=== PATIENT | male | born 1975 ===

== ENCOUNTER 2024-12-06 10:27 | Inpatient (IN) | payer MEDICARE, SELFPAY ==
--- NOTE | 2024-12-06 10:59 | ED_ITS ---
HPI - General Adult General Chief complaint: Psychiatric Symptoms Stated complaint: SI PER EMS Time Seen by Provider: 12/06/24 10:28 Source: patient and EMS Mode of arrival: EMS Limitations: no limitations History of Present Illness ED Provider: WILLIAM Carcamo HPI narrative: This is a 49-year-old male history of opiate use disorder on maintenance methadone who has not taken his dose for a few days presents to the emergency department with suicidal and homicidal ideation. Patient tells me I want to strangle my brother and Robel . When I asked him why he tells me he let them borrow money further apartment and then they started ?treating me like shit ?. He was mad because they offered to let him use his phone but they gave it to him when it was on 2%. He reports he is very upset right now. Denies visual, auditory and tactile hallucinations. Denies alcohol and tobacco but admits to just using heroin. Denies any medical complaints at this time. She does report he was recently at [facility] and then discharged to [facility] where they discharged him a few days ago Related Data Allergies Allergy/AdvReac Type Severity Reaction Status Date / Time No Known Allergies Allergy Verified 12/06/24 11:24 Review of Systems 2 Review of Systems: Yes all other systems are reviewed and are negative PMFSH Past Medical History Attestation statement: The following information was validated with the patient. Source: old records reviewed and nursing notes reviewed Social History Social History Smoked in Last 30 Days: Yes Use of substances other than those prescribed or required for medical reasons: Yes Substance Use Type: Heroin Substance Use Frequency: Daily Last Used Substance: Just Prior to Admission Advance Directives: No Advance Directives Information Provided: No Do you have a plan to hurt others: No Plan Physical Exam ED Exam Exam: Appearance: Alert.? Oriented X3.? No acute distress.?+ ambulating with a walker Head: Normocephalic, atraumatic, no step-offs or deformities Eyes: Pupils equal, round and reactive to light.? ENT: Pharynx normal.? Neck: Normal inspection.? Neck supple.? CVS: Normal heart rate and rhythm.? Pulses normal.? Respiratory: No respiratory distress.? Breath sounds normal.? Abdomen: Soft and nontender.? Skin: Skin warm and dry.? Normal skin color.? Normal skin turgor.? Extremities: No lower extremity edema.? No calf ttp. 5/5 strength to bilateral upper and lower extremities Back: No midline tenderness, no C-spine tenderness, full range of motion, no CVA tenderness bilaterally Neuro: Oriented X 3.? No motor deficit.? No sensory deficit. CN 2-12 intact Vital Signs: Vital Signs - 24 hr 12/06/24 11:36 Temperature 98.5 F Pulse Rate 57 Respiratory Rate 16 Blood Pressure 115/57 L Pulse Oximetry 95 Oxygen Delivery Method Room Air BMI result Body Mass Index 40.1 vss Course Reevaluation(s) Reevaluation #1: CBC with no acute findings needing intervention. Chemistry unremarkable. Ethanol negative. Urine toxicology and UA pending. Time: 11:55 Reevaluation #2: At this time patient will be placed into observation to allow more time to be evaluated by behavioral health team. At time observation was started patient common cooperative no acute distress will continue to monitor Time: 11:56 Medical Decision Making Medical Decision Making MDM Narrative: 1100 49-year-old male presents with suicidal and homicidal ideation. Physical exam benign Hx and physical exam concerning for aggression, suicidal and homicidal ideation. Patient likely with anger issues. Unlikely metabolic derangements. Plan medical clearance evaluation by care team Differential Diagnosis Differential Diagnoses: The differential diagnosis associated with the presentation includes (Hx and physical exam concerning for aggression, suicidal and homicidal ideation. Patient likely with anger issues. Unlikely metabolic derangements. Plan medical clearance evaluation by care team) Admission/Observation Consideration of admission/observation: Escalation of care including admission/observation considered Consult Healthcare Provider Management of the patient was discussed with: Behavioral Health Provider Lab Data 12/06/24 11:27 12/06/24 11:27 Labs: Lab Results 12/06/24 Range/Units 11:27 WBC 6.4 (4.8-10.8) X10*3/uL RBC 3.78 L (4.60-5.80) X10*6/uL Hgb 11.0 L (14.0-18.0) g/dl Hct 31.8 L (42.0-52.0) % MCV 84.1 (80.0-98.0) fL MCH 29.1 (27.0-33.0) pg MCHC 34.6 (31.0-36.0) g/dl RDW 13.1 (11.0-16.0) % Plt Count 212 (160-400) X10*3/uL MPV 9.0 L (9.4-12.4) fL Immature Gran % (Auto) 0.3 (0.0-0.4) % Neut % (Auto) 72.0 (45-73) % Lymph % (Auto) 17.4 L (20-40) % Bowie % (Auto) 9.2 (2-11) % Eos % (Auto) 0.8 (0-4) % Baso % (Auto) 0.3 (0-2) % Lymph # (Auto) 1.1 L (1.2-4.9) X10*3/uL Bowie # (Auto) 0.6 (0.1-1.2) X10*3/uL Eos # (Auto) 0.1 (0.0-0.4) X10*3/uL Baso # (Auto) 0.0 (0.0-0.2) X10*3/uL Abs Immat Gran (auto) 0.02 (0.00-0.03) X10*3/uL Absolute Neuts (auto) 4.6 (2.0-8.3) x10*3/uL Absolute Nucleated RBC 0.000 (0.0-0.012) X10*3/uL Nucleated RBC % (auto) 0.0 (0.0-0.2) /100WBC Sodium 139 (135-145) mmol/L Potassium 4.1 (3.3-5.1) mmol/L Chloride 106 (96-108) mmol/L Carbon Dioxide 26 (22-29) mmol/L Anion Gap 11 L (12-20) BUN 12 (9-16) mg/dL Creatinine 0.80 (0.5-1.4) mg/dL Estim Creat Clear Calc 137.5 Estimated GFR > 60 Random Glucose 99 (60-115) mg/dL Calcium 8.9 (8.4-10.2) mg/dL Total Bilirubin 0.3 (0.0-1.0) mg/dL AST 63 H (5-37) U/L ALT 61 H (0-40) U/L Alkaline Phosphatase 70 (39-117) U/L Total Protein 6.8 (6.5-8.0) g/dL Albumin 4.1 (3.5-5.0) g/dL Ethyl Alcohol < 10 mg/dL Chronic Conditions Patient?s care impacted by: Other (see hpi ) Critical Care Time Critical Care Time Critical Care Time: No Discharge Plan Discharge Clinical Impression: Acute psychosis, Suicidal ideation, Depression Interventions: [place]-Suicide Risk Severity Scale Last Done: 12/06/24 11:25 Print Language: Tanzanian
[2024-12-06 11:07] VITALS: BP 150/72; PULSE 72; O2SAT 94; BMI 40.1
[2024-12-06 11:33] LABS: MANUAL DIFF FLAG NO
[2024-12-06 11:36] VITALS: BP 115/57; PULSE 57; RESP 16; TEMP 36.9; O2SAT 95
[2024-12-06 11:36] LABS: Hematocrit 31.8 % (42.0-52.0); Hemoglobin 11.0 g/dl (14.0-18.0); Imm Gran Abs Auto 0.02 X10*3/uL (0.00-0.03); Imm Gran Pct Auto 0.3 % (0.0-0.4); Lymphocytes Absolute Auto 1.1 X10*3/uL (1.2-4.9); Mean Corpuscular HGB Conc 34.6 g/dl (31.0-36.0); Mean Corpuscular Hemoglobin 29.1 pg (27.0-33.0); Mean Corpuscular Volume 84.1 fL (80.0-98.0); NRBC Abs Auto 0.000 X10*3/uL (0.0-0.012); NRBC Pct Auto 0.0 /100WBC (0.0-0.2); Platelet Count 212 X10*3/uL (160-400); Red Blood Count 3.78 X10*6/uL (4.60-5.80); White Blood Count 6.4 X10*3/uL (4.8-10.8)
--- OUTSIDE RECORDS SUMMARY | 2024-12-06 11:40 | XMS_ITS ---
Author Name [facility] Organization Unknown Care Team Organization Name Specialty Phone Email Start Date End Da te [facility] Termed, PROVIDER Primary Care 10/10/2024 [facility] Termed, PROVIDER Primary Care 06/19/202409/30
--- OUTSIDE RECORDS SUMMARY | 2024-12-06 11:40 | XMS_ITS | Clinical Summary ---
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 V28) from Last 3 Months Social History Tobacco Use Types Packs/Day Years Used Date Smoking Tobacco: Never Assessed Sex and Gender Information Value Date Recorded Sex Assigned at Not on file Legal Sex Male 8:24 PM EST Gender Identity Not on file Sexual Orientation Not on file Plan of Treatment Health Maintenance Due Date Last Done Comments DTaP,Tdap,and Td Vaccines (1 - Tdap) 01/06/1995 Hepatitis A Vaccines (1 of 2 - Risk 2-dose series) 01/06/1995 Hepatitis B Vaccines (1 of 3 - 19+ 3-dose series) 01/06/1995 Colorectal Cancer Screening: Colonoscopy 04/27/2023 Medicare Annual Wellness Visit 04/27/2023 Social Influencers of Health Screening 04/27/2023 Depression Screening 04/02/2024 COVID-19 Vaccine (1 - 2023-2 5 season) 2024 Influenza Vaccine (#1) 2024 Cholesterol Screening (Lipid Panel) 11/06/2029 11/06/2024 HIV Screening Completed 08/29/2024 Hepatitis C Screening Completed 08/29/2024 HIB Vaccines Aged Out No longer eligi ble based on patient's age to complete this topic HPV Vaccines Aged Out No longer eligi ble based on patient's age to complete this topic IPV Vaccines Aged Out No longer eligi ble based on patient's age to complete this topic MMR Vaccines Aged Out No longer eligi ble based on patient's age to complete this topic Meningococcal ACWY Vaccine Aged Out N o longer eligible based on patient's age to complete this topic Meningococcal B Vaccine Aged Out No l onger eligible based on patient's age to complete this topic Pneumococcal Vaccine: Pediat rics (0 to 5 Years) and At-Risk Patients (6 to 49 Years) Aged Out No longer eligi ble based on patient's age to complete this topic RSV Immunization Patients Un corinne 20 months Aged Out No longer eligible b ased on patient's age to complete this topic Varicella Vaccines Aged Out No longer eligible based on patient's age to complete this topic Procedures Procedure Name Priority Date/Time Associated Diagnosis Comments LIPID PANEL WITH REFLEX TO DIRECT LDL Routine 11/06/2024 7:00 AM EDT Other moth exterminator (current) drug therapy COMPREHENSIVE METABOLIC PANEL Routine 11/06/2024 7:00 AM EDT Other moth exterminator (current) drug therapy HEMOGLOBIN A1C Routine 11/06/2024 7:00 AM EDT Other moth exterminator (current) drug therapy CHLAMYDIA TRACHOMATIS AND NEISSERIA GONORRHOEAE PCR Routine 10/20/2024 7:05 AM EDT Opioid dependence, uncomplicated (CMS/HCC V24, CMS/HCC V28) HEPATITIS C ANTIBODY Routine 08/29/2024 7:00 AM EDT Opioid dependence, uncomplicated (CMS/HCC V24, CMS/HCC V28) HIV 1, 2 ANTIBODY, P24 ANTIGEN WITH REFLEX TO DIFFERENTIATION Routine 08/29/2024 7:00 AM EDT Opioid dependence, uncomplicated (CMS/HCC V24, CMS/HCC V28) from Last 3 Months or Most Recently Relevant to Health Maintenance Results * (ABNORMAL) Lipid panel with reflex to direct LDL (11/06/2024 7:00 AM EDT) Cholesterol 297(H) 0 - 200 mg/dL LAB CHEMISTRY METHOD 11/06/2024 11:09 AM EDT [facility] Triglycerides 449(H) 0 - 150 mg/dL LAB CHEMISTRY METHOD 11/06/2024 11:09 AM EDT [facility] HDL 39(L) >=40 mg/dL LAB CHEMISTRY METHOD 11/06/2024 11:09 AM T [facility] LDL Calculated 168(H) 0 - 100 mg/dL LAB CHEMISTRY METHOD 11/06/2024 11:09 AM T [facility] Comment: Unable to calculate when triglycerides >400 mg/dL. Estimated LDL Calculated using equation: Total cholesterol - HDL cholesterol - (Triglycerides/5) VLDL Cholesterol Sadi 89.8 mg/dL LAB CHEMISTRY METHOD 11/06/2024 11:09 AM EDT [facility] Comment:Unable to calculate when triglycerides >400 mg/dL. Non HDL Chol. (LDL+VLDL) 258(H) <145 mg/dL LAB CHEMISTRY METHOD 11/06/2024 11:09 AM T [facility] Comment:Unable to calculate when triglycerides >400 mg/dL. Chol/HDL Ratio 7.6(H) 0.0 - 4.4 LAB CHEMISTRY METHOD 11/06/2024 11:09 AM T [facility] Blood Venous blood specimen / Unknown Venipuncture / Unknown 11/06/2024 7:00 AM EDT 11/06/2024 10:06 AM EDT us Remy Jerez NP LAB BLOOD ORDERABLES Final Resu lt [facility] [address] [place] [address], [place] [phone] * Hemoglobin A1c (11/06/2024 7:00 AM EDT) [facility] Hemoglobin A1C 4.9 <6.5 % LAB CHEMISTRY METHOD 11/06/2024 11:26 AM [facility] Mean Bld Glu Estim. 94 mg/dL LAB CHEMISTRY METHOD 11/06/2024 11:26 AM T [facility] Blood Venous blood specimen / Unknown Venipuncture / Unknown 11/06/2024 7:00 AM EDT 11/06/2024 10:06 AM EDT Remy Jerez NP LAB BLOOD ORDERABLES Final Resu lt [facility] [address] [place] [address], * (ABNORMAL) Comprehensive metabolic panel (11/06/2024 7:00 AM EDT) [facility] Sodium 140 133 - 145 mmol/L LAB CHEMISTRY METHOD 11/06/2024 11:08 AM [facility] Potassium 4.0 3.5 - 5.5 mmol/L LAB CHEMISTRY METHOD 11/06/2024 11:08 AM [facility] Chloride 109 96 - 110 mmol/L LAB CHEMISTRY METHOD 11/06/2024 11:08 AM [facility] CO2 25 21 - 32 mmol/L LAB CHEMISTRY METHOD 11/06/2024 11:08 AM [facility] Anion Gap 6 3 - 11 LAB CHEMISTRY METHOD 11/06/2024 11:08 AM [facility] Glucose 105(H) 70 - 100 mg/dL LAB CHEMISTRY METHOD 11/06/2024 11:08 AM [facility] BUN 17 5 - 25 mg/dL LAB CHEMISTRY METHOD 11/06/2024 11:08 AM [facility] Creatinine 0.80 0.70 - 1.30 mg/dL LAB CHEMISTRY METHOD 11/06/2024 11:08 AM [facility] eGFR 109 >=60 mL/min/1. 73m2 LAB CHEMISTRY METHOD 11/06/2024 11:08 AM [facility] Comment:Calculation based on the Chronic Kidney Disease Epidemiology Collaboration (CKD-EPI) equation refit without adjustment for race. BUN/Creatinine Ratio 21.3 LAB CHEMISTRY METHOD 11/06/2024 11:08 AM [facility] Calcium 9.2 8.5 - 10.5 mg/dL LAB CHEMISTRY METHOD 11/06/2024 11:08 AM [facility] AST (SGOT) 18 10 - 42 unit/L LAB CHEMISTRY METHOD 11/06/2024 11:08 AM [facility] ALT (SGPT) 33 10 - 60 unit/L LAB CHEMISTRY METHOD 11/06/2024 11:08 AM [facility] Alkaline Phosphatase 92 42 - 121 unit/L LAB CHEMISTRY METHOD 11/06/2024 11:08 AM [facility] Total Protein 7.1 6.0 - 8.0 g/dL LAB CHEMISTRY METHOD 11/06/2024 11:08 AM [facility] Albumin 3.6 3.2 - 5.0 g/dL LAB CHEMISTRY METHOD 11/06/2024 11:08 AM [facility] Total Bilirubin 0.3 0.0 - 1.4 mg/dL LAB CHEMISTRY METHOD 11/06/2024 11:08 AM [facility] Blood Venous blood specimen / Unknown Venipuncture / Unknown 11/06/2024 7:00 AM EDT 11/06/2024 10:06 AM EDT us Remy Jerez NP LAB BLOOD ORDERABLES Final Resu lt [facility] [address] [place] [address], [place] [phone] * Chlamydia trachomatis and Neisseria gonorrhoeae molecular study (10/20/2024 7:05 AM EDT) [facility] Neisseria gonorrhoeae PCR Negative Negative LAB MOLECULAR DIAGNOSTICS METHOD 10/20/2024 3:32 PM EDT [facility] Chlamydia trachomatis PCR Negative Negative LAB MOLECULAR DIAGNOSTICS METHOD 10/20/2024 3:32 PM EDT [facility] Urine 10/20/2024 7:05 AM EDT 10/20/2024 12:56 PM EDT Simi Barkley MD LAB MICROBIOLOGY - GENE RAL ORDERABLES Final Result Performing Organization Address City/[facility]/ZIP Co de Phone Number [facility] [address] [place] [address], [place] [phone] * Hepatitis C antibody (08/29/2024 7:00 AM EDT) [facility] Hepatitis C Antibody Negative Negative LAB CHEMISTRY METHOD 08/29/2024 7:20 PM EDT [facility] Blood Venous blood specimen / Unknown 08/29/2024 7:00 AM EDT 08/29/2024 2:55 PM EDT Simi Barkley MD LAB BLOOD ORDERABLES Fi nal Result [facility] [address] [place] [address], [place] [phone] * HIV 1,2 antibody, p24 antigen with reflex to differentiation (08/29/2024 7:00 AM EDT) [facility] HIV Combo AB/AG Negative Negative LAB CHEMISTRY METHOD 08/29/2024 7:25 PM EDT [facility] Blood Venous blood specimen / Unknown 08/29/2024 7:00 AM EDT 08/29/2024 2:55 PM EDT Narrative [facility]) [facility] - 08/29/2024 7:25 PM EDT This assay is a 4th generation assay allowing for earlier detection of HIV infection by detecting the presence of the HIV-1 p24 antigen as well as the traditional antibodies to HIV type 1 (including group O) and type 2. Use of a 4th generation assay is the current CDC recommendation for HIV screening. us Simi Barkley MD LAB BLOOD ORDERABLES Fi nal Result [facility] ([facility]) [facility] [address] [place] [address], from Last 3 Months or Most Recently Relevant to Health Maintenance Insurance MEDICAID - [place] AET[place] MEDICARE ADVANTAGE Care Teams Passenger Brakeman Relationship Specialty Start Date End Date Remy Jerez NP [address] [place] [id number] PCP - General 11/06/24
--- OUTSIDE RECORDS SUMMARY | 2024-12-06 11:40 | XMS_ITS | Encounter Summary ---
Author Organization [employer] [facility] Address [address] [place] [address] Care Team Providers Care Heddler Name Role Phone Remy Jerez NP Primary Care Provider [phone] Encounter Details Date Type Department Care Team (Late st Contact Info) Description 10/20/2024 Lab Requisition [facility] Lab [address] [facility] [place] [address] Simi Barkley MD [address] [place] [address] Opioid dependence, uncomplicated ([facility] V24, [facility] V28) Social History Tobacco Use Types Packs/Day Years Used Date Smoking Tobacco: Never Assessed Sex and Gender Information Value Date Recorded Sex Assigned at Not on file Legal Sex Male 8:24 PM EST Gender Identity Not on file Sexual Orientation Not on file documented as of this encounter Plan of Treatment Not on file documented as of this encounter Procedures Procedure Name Priority Date/Time Associated Diagnosis Comments CHLAMYDIA TRACHOMATIS AND NEISSERIA GONORRHOEAE PCR Routine 10/20/2024 7:05 AM EDT Opioid dependence, uncomplicated ([facility] V24, [facility] V28) documented in this encounter Results * Chlamydia trachomatis and Neisseria gonorrhoeae molecular study (10/20/2024 7:05 AM EDT) Neisseria gonorrhoeae PCR Negative Negative LAB MOLECULAR DIAGNOSTICS METHOD 10/20/2024 3:32 PM EDT [facility] Chlamydia trachomatis PCR Negative Negative LAB MOLECULAR DIAGNOSTICS METHOD 10/20/2024 3:32 PM EDT [facility] Urine 10/20/2024 7:05 AM EDT 10/20/2024 12:56 PM EDT us Simi Barkley MD LAB MICROBIOLOGY - GENE RAL ORDERABLES Final Result [facility] ([facility]) [facility] [address] [place] [address], documented in this encounter Visit Diagnoses Diagnosis Opioid dependence, uncomplicated (CMS/HCC V24, CMS/HCC V28) documented in this encounter Care Teams Heddler Relationship Specialty Start Date End Date Remy Jerez NP [facility] [place] [address] PCP - General 11/06/24 documented as of this encounter
--- OUTSIDE RECORDS SUMMARY | 2024-12-06 11:40 | XMS_ITS | Encounter Summary ---
Author Organization [employer] Address [address] [place] [address] Care Team Providers Care Roof Tiler Name Role Phone Remy Jerez NP Primary Care Provider Encounter Details Date Type Department Care Team (Late st Contact Info) Description 08/29/2024 Lab Requisition [facility] - Main Lab [address] [facility] [place] [address] Simi Barkley MD [address] [place] [address] Opioid dependence, uncomplicated (CMS/HCC V24, CMS/HCC V28) Social History Tobacco Use Types Packs/Day [...] Procedure Name Priority Date/Time Associated Diagnosis Comments HEPATITIS C ANTIBODY Routine 08/29/2024 7:00 AM EDT Opioid dependence, uncomplicated (CMS/HCC V24, CMS/HCC V28) HIV 1, 2 ANTIBODY, P24 ANTIGEN WITH REFLEX TO DIFFERENTIATION Routine 08/29/2024 7:00 AM EDT Opioid dependence, uncomplicated (CMS/HCC V24, CMS/HCC V28) HEPATITIS B SURFACE ANTIGEN WITH CONFIRMATION Routine 08/29/2024 7:00 AM EDT Opioid dependence, uncomplicated (CMS/HCC V24, CMS/HCC V28) TREPONEMA PALLIDUM ANTIBODY WITH REFLEX TO RPR AND PARTICLE AGGLUTINATION Routine 08/29/2024 7:00 AM EDT Opioid dependence, uncomplicated (CMS/HCC V24, CMS/HCC V28) WHITE - K2EDTA Routine 08/29/2024 7:00 AM EDT Opioid dependence, uncomplicated (CMS/HCC V24, CMS/HCC V28) HEPATITIS A ANTIBODY TOTAL WITH REFLEX IGM Routine 08/29/2024 7:00 AM EDT Opioid dependence, uncomplicated (CMS/HCC V24, CMS/HCC V28) LAVENDER - EDTA Routine 08/29/2024 7:00 AM EDT Opioid dependence, uncomplicated (CMS/HCC V24, CMS/HCC V28) RED - PLAIN Routine 08/29/2024 7:00 AM EDT Opioid dependence, uncomplicated (CMS/HCC V24, CMS/HCC V28) HEPATITIS B CORE ANTIBODY, TOTAL Routine 08/29/2024 7:00 AM EDT Opioid dependence, uncomplicated (CMS/HCC V24, CMS/HCC V28) HEPATITIS B SURFACE ANTIBODY Routine 08/29/2024 7:00 AM EDT Opioid dependence, uncomplicated (CMS/HCC V24, CMS/HCC V28) COMPREHENSIVE METABOLIC PANEL Routine 08/29/2024 7:00 AM EDT Opioid dependence, uncomplicated (CMS/HCC V24, CMS/HCC V28) documented in this encounter Results * White - K2EDTA (08/29/2024 7:00 AM EDT) Extra Tube Hold for add-ons. 08/29/2024 4:01 PM EDT [facility] ([facility]) [facility] Comment:Auto resulted. Blood Venous blood specimen / Unknown 08/29/2024 7:00 AM EDT 08/29/2024 2:55 PM EDT us Simi Barkley MD LAB BLOOD ORDERABLES Fi nal Result [facility] [address] [place] [address], [place] [phone] * Red tube (08/29/2024 7:00 AM EDT) Extra Tube Hold for add-ons. 08/29/2024 4:01 PM EDT [facility] Comment:Auto resulted. Blood Venous blood specimen / Unknown 08/29/2024 7:00 AM EDT 08/29/2024 2:55 PM EDT Simi Barkley MD LAB BLOOD ORDERABLES Fi nal Result Performing Organization Address [facility]/ZIP Co de Phone Number [facility] [address] [place] [address], [place] [phone] * Lavender tube (08/29/2024 7:00 AM EDT) Extra Tube Hold for add-ons. 08/29/2024 4:01 PM EDT [facility] Comment:Auto resulted. Blood Venous blood specimen / Unknown 08/29/2024 7:00 AM EDT 08/29/2024 2:55 PM EDT Simi Barkley MD LAB BLOOD ORDERABLES Fi nal Result Performing Organization Address City/[facility]/ZIP Co de Phone Number [facility] [address] [place] [address], [place] [phone] * Hepatitis C antibody (08/29/2024 7:00 AM EDT) Hepatitis C Antibody Negative Negative LAB CHEMISTRY METHOD 08/29/2024 7:20 PM EDT [facility] Blood Venous blood specimen / Unknown 08/29/2024 7:00 AM EDT 08/29/2024 2:55 PM EDT Simi Barkley MD LAB BLOOD ORDERABLES Fi nal Result Performing Organization Address [facility]/ZIP Co de Phone Number [facility] [address] [place] [address], [place] [phone] * Hepatitis A antibody total with reflex IgM (08/29/2024 7:00 AM EDT) Hep A Total Ab Negative Negative LAB CHEMISTRY METHOD 08/29/2024 7:20 PM EDT [facility] Blood Venous blood specimen / Unknown 08/29/2024 7:00 AM EDT 08/29/2024 2:[address] [facility] - 08/29/2024 7:20 PM EDT Over the counter supplements containing high doses of biotin may interfere with this assay. If interference is suspected, patients shoud be retested after refraining from biotin supplements for 72 hours. Simi Barkley MD LAB BLOOD ORDERABLES Fi nal Result Performing Organization Address [facility] Co de Phone Number [facility] [address] [place] [address], [place] [phone] * HIV 1,2 antibody, p24 antigen with reflex to differentiation (08/29/2024 7:00 AM EDT) HIV Combo AB/AG Negative Negative LAB CHEMISTRY METHOD 08/29/2024 7:25 PM EDT [facility] Blood Venous blood specimen / Unknown 08/29/2024 7:00 AM EDT 08/29/2024 2:[address] [facility] - 08/29/2024 7:25 PM EDT This assay is a 4th generation assay allowing for earlier detection of HIV infection by detecting the presence of the HIV-1 p24 antigen as well as the traditional antibodies to HIV type 1 (including group O) and type 2. Use of a 4th generation assay is the current CDC recommendation for HIV screening. Simi Barkley MD LAB BLOOD ORDERABLES Fi nal Result Performing Organization Address City/[facility]/ZIP Co de Phone Number [facility] [address] [place] [address], [place] [phone] * Hepatitis B core antibody, total (08/29/2024 7:00 AM EDT) Hep B Core Total Ab Negative Negative LAB CHEMISTRY METHOD 08/29/2024 7:25 PM EDT [facility] Blood Venous blood specimen / Unknown 08/29/2024 7:00 AM EDT 08/29/2024 2:55 PM EDT Simi Barkley MD LAB BLOOD ORDERABLES Fi nal Result Performing Organization Address [facility] de Phone Number [facility] [address] [place] [address], [place] [phone] * Hepatitis B surface antibody (08/29/2024 7:00 AM EDT) Hepatitis B Surface Ab Negative Negative LAB CHEMISTRY METHOD 08/29/2024 6:46 PM EDT [facility] Hepatitis B Surface Ab Quantitative <3.1 mIU/mL LAB CHEMISTRY METHOD 08/29/2024 6:46 PM EDT [facility] Blood Venous blood specimen / Unknown 08/29/2024 7:00 AM EDT 08/29/2024 2:55 PM EDT Narrative [facility] - 08/29/2024 6:46 PM EDT >=10 mIU/mL is considered to be consistent with immunity. Simi Barkley MD LAB BLOOD ORDERABLES Fi nal Result Performing Organization Address City/[facility]/ZIP Co de Phone Number [facility] [address] [place] [address], [place] [phone] * Hepatitis B surface antigen with reflex to confirmation (08/29/2024 7:00 AM EDT) [facility] Hepatitis B Surface Ag Negative Negative LAB CHEMISTRY METHOD 08/29/2024 6:57 PM EDT [facility] Blood Venous blood specimen / Unknown 08/29/2024 7:00 AM EDT 08/29/2024 2:55 PM EDT Narrative [facility] - 08/29/2024 6:57 PM EDT Over the counter supplements containing high doses of biotin may interfere with this assay. If interference is suspected, patients shoud be retested after refraining from biotin supplements for 72 hours. Simi Barkley MD LAB BLOOD ORDERABLES Fi nal Result Performing Organization Address [facility]/ZIP Co de Phone Number [facility] [address] [place] [address], [place] [phone] * Treponema pallidum antibody with reflex to RPR and particle agglutination (08/29/2024 7:00 AM EDT) [facility] T. Pallidum Antibodies Negative Negative LAB CHEMISTRY METHOD 08/29/2024 6:56 PM EDT [facility] Blood Venous blood specimen / Unknown 08/29/2024 7:00 AM EDT 08/29/2024 2:55 PM EDT Simi Barkley MD LAB BLOOD ORDERABLES Fi nal Result Performing Organization Address City/[facility]/ZIP Co de Phone Number [facility] [address] [place] [address], [place] [phone] * Comprehensive metabolic panel (08/29/2024 7:00 AM EDT) [facility] Sodium 140 133 - 145 mmol/L LAB CHEMISTRY METHOD 08/29/2024 3:58 PM [facility] Potassium 4.2 3.5 - 5.5 mmol/L LAB CHEMISTRY METHOD 08/29/2024 3:58 PM [facility] Chloride 106 96 - 110 mmol/L LAB CHEMISTRY METHOD 08/29/2024 3:58 PM [facility] CO2 24 21 - 32 mmol/L LAB CHEMISTRY METHOD 08/29/2024 3:58 PM [facility] Anion Gap 10 3 - 11 LAB CHEMISTRY METHOD 08/29/2024 3:58 PM [facility] Glucose 98 70 - 100 mg/dL LAB CHEMISTRY METHOD 08/29/2024 3:58 PM [facility] BUN 18 5 - 25 mg/dL LAB CHEMISTRY METHOD 08/29/2024 3:58 PM [facility] Creatinine 0.86 0.70 - 1.30 mg/dL LAB CHEMISTRY METHOD 08/29/2024 3:58 PM [facility] eGFR 107 >=60 mL/min/1. 73m2 LAB CHEMISTRY METHOD 08/29/2024 3:58 PM [facility] Comment:Calculation based on the Chronic Kidney Disease Epidemiology Collaboration (CKD-EPI) equation refit without adjustment for race. BUN/Creatinine Ratio 20.9 LAB CHEMISTRY METHOD 08/29/2024 3:58 PM [facility] Calcium 8.6 8.5 - 10.5 mg/dL LAB CHEMISTRY METHOD 08/29/2024 3:58 PM [facility] AST (SGOT) 27 10 - 42 unit/L LAB CHEMISTRY METHOD 08/29/2024 3:58 PM [facility] ALT (SGPT) 26 10 - 60 unit/L LAB CHEMISTRY METHOD 08/29/2024 3:58 PM [facility] Alkaline Phosphatase 88 42 - 121 unit/L LAB CHEMISTRY METHOD 08/29/2024 3:58 PM [facility] Total Protein 7.8 6.0 - 8.0 g/dL LAB CHEMISTRY METHOD 08/29/2024 3:58 PM EDT [facility] Albumin 3.9 3.2 - 5.0 g/dL LAB CHEMISTRY METHOD 08/29/2024 3:58 PM EDT [facility] Total Bilirubin 0.3 0.0 - 1.4 mg/dL LAB CHEMISTRY METHOD 08/29/2024 3:58 PM EDT [facility] Blood Venous blood specimen / Unknown 08/29/2024 7:00 AM EDT 08/29/2024 2:55 PM EDT us Simi Barkley MD LAB BLOOD ORDERABLES Fi nal Result [facility] [address] [place] [address], documented in this encounter Visit Diagnoses Diagnosis Opioid dependence, uncomplicated (CMS/HCC V24, CMS/HCC V28) documented in this encounter Care Teams Roof Tiler Relationship Specialty Start Date End Date Remy Jerez NP [address] [place] [address] PCP - General 11/06/24 documented as of this encounter
--- OUTSIDE RECORDS SUMMARY | 2024-12-06 11:40 | XMS_ITS | Encounter Summary ---
Author Organization [employer] Address [address] [place] [address] Care Team Providers Care Hotel Services Supervisor Name Role Phone Remy Jerez NP Primary Care Provider [phone] Encounter Details Date Type Department Care Team (Late st Contact Info) Description 11/06/2024 Lab Requisition [facility] - Main Lab [address] [place] [address] Remy Jerez NP [address] [place] [address] Other longterm (current) drug therapy Social History Tobacco Use Types Packs/Day Years [...] LDL Routine 11/06/2024 7:00 AM EDT Other longterm (current) drug therapy HEMOGLOBIN A1C Routine 11/06/2024 7:00 AM EDT Other data conversion operator (current) drug therapy COMPREHENSIVE METABOLIC PANEL Routine 11/06/2024 7:00 AM EDT Other data conversion operator (current) drug therapy documented in this encounter Results * (ABNORMAL) Lipid panel with reflex to direct LDL (11/06/2024 7:00 AM EDT) Cholesterol 297(H) 0 - 200 mg/dL LAB CHEMISTRY METHOD 11/06/2024 11:09 AM EDT [facility] Triglycerides 449(H) 0 - 150 mg/dL LAB CHEMISTRY METHOD 11/06/2024 11:09 AM EDT [facility] HDL 39(L) >=40 mg/dL LAB CHEMISTRY METHOD 11/06/2024 11:09 AM [facility] LDL Calculated 168(H) 0 - 100 mg/dL LAB CHEMISTRY METHOD 11/06/2024 11:09 AM T [facility] Comment: Unable to calculate when triglycerides >400 mg/dL. Estimated LDL Calculated using equation: Total cholesterol - HDL cholesterol - (Triglycerides/5) VLDL Cholesterol Sadi 89.8 mg/dL LAB CHEMISTRY METHOD 11/06/2024 11:09 AM EDT [facility] Comment:Unable to calculate when triglycerides >400 mg/dL. Non HDL Chol. (LDL+VLDL) 258(H) <145 mg/dL LAB CHEMISTRY METHOD 11/06/2024 11:09 AM T [facility] Comment:Unable to calculate when triglycerides >400 mg/dL. Chol/HDL Ratio 7.6(H) 0.0 - 4.4 LAB CHEMISTRY METHOD 11/06/2024 11:09 AM [facility] Blood Venous blood specimen / Unknown Venipuncture / Unknown 11/06/2024 7:00 AM EDT 11/06/2024 10:06 AM EDT Remy Jerez POKE IN LAB BLOOD ORDERABLES Final Resu lt [facility] [address] [place] [address], * (ABNORMAL) Comprehensive metabolic panel (11/06/2024 7:00 AM EDT) Sodium 140 133 - 145 mmol/L LAB CHEMISTRY METHOD 11/06/2024 11:08 AM EDT [facility] Potassium 4.0 3.5 - 5.5 mmol/L LAB CHEMISTRY METHOD 11/06/2024 11:08 AM [facility] Chloride 109 96 - 110 mmol/L LAB CHEMISTRY METHOD 11/06/2024 11:08 AM [facility] CO2 25 21 - 32 mmol/L LAB CHEMISTRY METHOD 11/06/2024 11:08 AM [facility] Anion Gap 6 3 - 11 LAB CHEMISTRY METHOD 11/06/2024 11:08 AM [facility] Glucose 105(H) 70 - 100 mg/dL LAB CHEMISTRY METHOD 11/06/2024 11:08 AM [facility] BUN 17 5 - 25 mg/dL LAB CHEMISTRY METHOD 11/06/2024 11:08 AM [facility] Creatinine 0.80 0.70 - 1.30 mg/dL LAB CHEMISTRY METHOD 11/06/2024 11:08 AM [facility] eGFR 109 >=60 mL/min/1. 73m2 LAB CHEMISTRY METHOD 11/06/2024 11:08 AM [facility] Comment:Calculation based on the Chronic Kidney Disease Epidemiology Collaboration (CKD-EPI) equation refit without adjustment for race. BUN/Creatinine Ratio 21.3 LAB CHEMISTRY METHOD 11/06/2024 11:08 AM [facility] Calcium 9.2 8.5 - 10.5 mg/dL LAB CHEMISTRY METHOD 11/06/2024 11:08 AM [facility] AST (SGOT) 18 10 - 42 unit/L LAB CHEMISTRY METHOD 11/06/2024 11:08 AM [facility] ALT (SGPT) 33 10 - 60 unit/L LAB CHEMISTRY METHOD 11/06/2024 11:08 AM [facility] Alkaline Phosphatase 92 42 - 121 unit/L LAB CHEMISTRY METHOD 11/06/2024 11:08 AM [facility] Total Protein 7.1 6.0 - 8.0 g/dL LAB CHEMISTRY METHOD 11/06/2024 11:08 AM EDT [facility] Albumin 3.6 3.2 - 5.0 g/dL LAB CHEMISTRY METHOD 11/06/2024 11:08 AM EDT [facility] Total Bilirubin 0.3 0.0 - 1.4 mg/dL LAB CHEMISTRY METHOD 11/06/2024 11:08 AM EDT [facility] Blood Venous blood specimen / Unknown Venipuncture / Unknown 11/06/2024 7:00 AM EDT 11/06/2024 10:06 AM EDT Remy Jerez NP LAB BLOOD ORDERABLES Final Resu lt Performing Organization Address City/[facility]/ZIP Co de Phone Number [facility] [address] [place] [address], [place] [phone] * Hemoglobin A1c (11/06/2024 7:00 AM EDT) Hemoglobin A1C 4.9 <6.5 % LAB CHEMISTRY METHOD 11/06/2024 11:26 AM EDT [facility] Mean Bld Glu Estim. 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
--- OUTSIDE RECORDS SUMMARY | 2024-12-06 11:40 | XMS_ITS | Encounter Summary ---
Author Organization [facility] Address [address] [place] [address] Care Team Providers Care Campus Receptionist Name Role Phone Remy Jerez NP Primary Care Provider [phone] Encounter Details Date Type Department Care Team (Late st Contact Info) Description 11/06/2024 Lab Requisition [facility] - Main Lab [address] [place] [address] Remy Jerez NP [facility] [place] [address] Social History Tobacco Use Types Packs/Day Years Used Date Smoking Tobacco: Never Assessed Sex and Gender Information Value Date Recorded Sex Assigned at Not on file Legal Sex Male 8:24 PM EST Gender Identity Not on file Sexual Orientation Not on file documented as of this encounter Plan of Treatment Not on file documented as of this encounter Visit Diagnoses Not on filedocumented in this encounter Care Teams Campus Receptionist Relationship Specialty Start Date End Date Remy Jerez NP [facility] [place] [address] PCP - General 11/06/24 documented as of this encounter
[2024-12-06 11:53] LABS: Alanine Aminotransferase 61 U/L (0-40); Albumin Level 4.1 g/dL (3.5-5.0); Alkaline Phosphatase 70 U/L (39-117); Anion Gap 11 (12-20); Aspartate Amino Transferase 63 U/L (5-37); Blood Urea Nitrogen 12 mg/dL (9-16); Calcium 8.9 mg/dL (8.4-10.2); Carbon Dioxide 26 mmol/L (22-29); Chloride 106 mmol/L (96-108); Creatinine Clr Calc Pharmacy 137.5; Estimated Glomerular Filt Rate > 60; Potassium 4.1 mmol/L (3.3-5.1); Sodium 139 mmol/L (135-145); Total Protein 6.8 g/dL (6.5-8.0)
[2024-12-06 12:41] LABS: Appearance Urine Clear; Glucose Urine UA Negative (Negative); PH >= 9.0 (5.0-9.0); Specific Gravity - Urine 1.010 (1.005-1.025)
[2024-12-06 12:50] LABS: Cannabinoid Screen Urine Not Detected (Not Detect)
--- NOTE | 2024-12-06 13:36 | HE.PHANOTE ---
RE Methadone Pt recieves 140mg from [facility]. Last dose given was on 12/03/24 @0830
[2024-12-06 14:00] VITALS: BP 119/60; PULSE 59; RESP 16; O2SAT 97
[2024-12-06] MEDS: methADONE HCl 20 MG/2 ML ORAL.CONC 140 MG PO (15:25)
--- NOTE | 2024-12-06 16:50 | PC.NURSE ---
Pt has remained calm and cooperative, he is able to make his needs known. He has reported anxiety and nicotine cravings. Orders obtained for PRN's with good effect. Pt currently denies SI at this time but gets emotional when asked and talks about his . He sits in the common area and spends time watching TV and coloring. He continues to ambulate with is walker, safety is maintained.
[2024-12-07 06:22] VITALS: BP 114/67; PULSE 51; RESP 17; TEMP 36.3; O2SAT 96
--- NOTE | 2024-12-07 07:15 | PC.NURSE ---
Assumed care, report received. Pt is awake, calm and cooperative. He ambulates with his walker, safety maintained. He currently denies SI, He does ask about relatives at times. He is anxious and asks frequently for things to do. He is provided with coloring supplies and number games.
[2024-12-07] MEDS: methADONE HCl 20 MG/2 ML ORAL.CONC 140 MG PO (08:06)
--- NOTE | 2024-12-07 12:05 | PHA.MEDREC ---
Addendum entered by Jhonatan Barajas PharmD 12/07/24 12:07: reviewed Original Note: Pharmacy Consult ? Medication Reconciliation Pharmacy has reviewed the medication reconciliation done by nursing. claims match med list.
[2024-12-07 17:58] VITALS: BP 133/72; PULSE 57; RESP 16; O2SAT 98
--- NOTE | 2024-12-07 19:04 | PC.NURSE ---
This RN assumed pt care @ 1900. Pt sitting at desk doing word search, no signs of distress. Plan of care ongoing.
--- NOTE | 2024-12-07 19:12 | PC.NURSE ---
Pt resting in bed, watching TV. Plan of care ongoing.
--- NOTE | 2024-12-07 20:12 | PC.NURSE ---
Pt ambulates with walker to nurses station. Pt requested and given food. Plan of care ongoing.
--- NOTE | 2024-12-07 20:19 | PC.NURSE ---
Pt at nurses station requested and given food. Plan of care ongoing.
--- NOTE | 2024-12-07 20:41 | PC.NURSE ---
Pt requested and medicated per [facility] Plan of care ongoing.
--- NOTE | 2024-12-08 | ECG_ITS ---
Test Reason : r/o prolonged qt Blood Pressure : */* mmHG Vent. Rate : 55 BPM Atrial Rate : 55 BPM P-R Int : 152 ms QRS Dur : 96 ms QT Int : 490 ms P-R-T Axes : 39 42 35 degrees QTcB Int : 468 ms Sinus bradycardia Otherwise normal ECG No previous ECGs available Referred By: Eloy Florian Electronically Signed By: DOC CARPENTER MD
--- NOTE | 2024-12-08 01:15 | PC.NURSE ---
Assumed care for pt at 2300. Pt is currently sleeping at the bedside. No apparent distress noted. Breaths are even regular and unlabored with equal chest rises. Monitoring is ongoing.
--- NOTE | 2024-12-08 01:28 | PC.NURSE ---
Pt up and awake, ambulating with a walker. Requesting food and drink and hydroxyzine stating feeling anxious. Food and drink provided. Pt medicated as per MAR for anxiety. Monitoring is ongoing.
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
[2024-12-08 07:12] VITALS: BP 159/78; PULSE 56; TEMP 36.8; O2SAT 100
[2024-12-08] MEDS: methADONE HCl 20 MG/2 ML ORAL.CONC 140 MG PO (08:33)
[2024-12-08 08:34] VITALS: BP 159/78
--- NOTE | 2024-12-08 11:33 | MHC.CARE ---
[employer] Auth [id number] From Kezia Spencer, then clinical presented to [facility] Review with Kerri Villarreal on 12/12 @ [phone]
[2024-12-08 13:27] VITALS: BP 138/83; PULSE 51; RESP 16; TEMP 36.6; O2SAT 94
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
[2024-12-08 20:00] VITALS: BP 114/65; PULSE 57; RESP 16; TEMP 36.4; O2SAT 95
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
--- NOTE | 2024-12-08 23:08 | PC.NURSE ---
C.O. initiated as patient reports he will be at risk for falling with his R foot drop if he does not have boots/brace available for safety to ambulate to the bathroom at night. refusing to use bed side urinal. patient is at far end of unit.
[2024-12-09 08:00] VITALS: BP 168/78; PULSE 60; RESP 16; TEMP 36.6; O2SAT 95
[2024-12-09] MEDS: methADONE HCl 20 MG/2 ML ORAL.CONC 140 MG PO (08:20)
[2024-12-09 08:28] VITALS: BP 160/78
[2024-12-09 09:22] LABS: Hemoglobin A1C 101.4101 umol/L; Total Hemoglobin (HGBA1C) 3206.0593 umol/L
[2024-12-09 09:29] LABS: Alanine Aminotransferase 44 U/L (0-40); Albumin Level 3.8 g/dL (3.5-5.0); Alkaline Phosphatase 72 U/L (39-117); Anion Gap 14 (12-20); Aspartate Amino Transferase 41 U/L (5-37); Blood Urea Nitrogen 27 mg/dL (9-16); Calcium 9.2 mg/dL (8.4-10.2); Carbon Dioxide 27 mmol/L (22-29); Chloride 106 mmol/L (96-108); Cholesterol 274 mg/dL (<200); Creatinine Clr Calc Pharmacy 110.0; Estimated Glomerular Filt Rate > 60; HDL Cholesterol 39 mg/dL (>40); Potassium 4.2 mmol/L (3.3-5.1); Sodium 143 mmol/L (135-145); Total Protein 6.8 g/dL (6.5-8.0); Triglycerides 289 mg/dL (<150)
[2024-12-09 09:45] LABS: Free T4 (Free Thyroxine) 0.87 ng/dL (0.71-1.85); Thyroid Stimulating Hormone 3.93 uIU/mL (0.32-4.0)
--- NOTE | 2024-12-09 10:13 | P.PNPSI_ITS ---
Subjective Subjective Date of Service: 12/09/24 Reason For Visit: SI and HI Subjective Notes: Conditional Voluntary Healthcare Proxy: No Guardianship: No Medical Problems Affecting Mental Status: No Interim History: Medical record and nursing notes reviewed; case discussed during rounds with team/nursing staff, and met with patient for supportive therapy/psychoeducation, as well as medication management. Patient slept good, no issue with appetite. Compliant with medication. He said I do not understand but I am still out of it today . He further explained that he may not taking medication for couple of days and restart since he got here which make him sedated. Denies SI reports HI but improve with no plan or intention to do harm to his brother. Denies hallucinations. He ambulate using the walker, have the work boots on. Remain on 5 minute checks and at night will be on close as he can not return to shoes. Needed to use ambulate when during the night. He met with hospitalist regarding elevated on lipid profile, and BUN. The hospitalist started him on medication for medical conditions. Continue to educate patient on healthy diet and portion size. The addiction team also going to see him today as well. However they will not taking care of able to taper down on methadone. The patient need to address with the outpatient clinic. [facility]. 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 He attended groups, social, appropriate. No behavior issues. Medication Compliance: Yes Side effects from medications: No Attending Groups: Yes Review of Systems Acute medical concerns: No Medical Review of Systems: unchanged Review of Systems Review of Systems Denies any shortness of breath, chest pain, dizziness, lightheadedness, abdominal pain or discomfort, nausea vomiting or diarrhea Mental Status Exam Mental Status Exam Narrative: Patient is alert and oriented; behavior is cooperative, friendly with mild anxiety and depression; patient is not in distress; dressed in hospital attire with kempt hair and adequate hygiene; mood is described as better and affect congruent; eye contact appropriate; Speech is normal rate, volume and prosody and not pressured; no psychomotor agitation/retardation present; thought process is organized and goal directed; Thought content is WNL, pertinent to relevant topics and without any delusional content, paranoid ideation or grandiosity; denies any SI/SIB. Report +HI toward brother without plan and intent. Denies AVH. Patient's insight and judgment improved. Diagnostics Vital Signs (24Hr): Vital Signs - 24 hr 12/08/24 13:27 12/08/24 20:00 12/09/24 08:00 Temperature 97.8 F 97.6 F 97.8 F Pulse Rate 51 57 60 Respiratory Rate 16 16 16 Blood Pressure 138/83 114/65 168/78 H Pulse Oximetry 94 95 95 Oxygen Delivery Method Room Air Room Air Room Air 12/09/24 08:28 Temperature Pulse Rate Respiratory Rate Blood Pressure 160/78 H Pulse Oximetry Oxygen Delivery Method BMI result Body Mass Index 40.1 Labs 12/06/24 11:27 12/09/24 08:18 Labs: Laboratory Results - last 48 hr 12/09/24 08:18 Sodium 143 Potassium 4.2 Chloride 106 Carbon Dioxide 27 Anion Gap 14 BUN 27 H Creatinine 1.00 Estim Creat Clear Calc 110.0 Estimated GFR > 60 Random Glucose 99 Estimat Average Glucose 97 Hemoglobin A1c % 5.0 Calcium 9.2 Total Bilirubin 0.2 AST 41 H ALT 44 H Alkaline Phosphatase 72 Total Protein 6.8 Albumin 3.8 Triglycerides 289 H Cholesterol 274 H LDL Cholesterol, Calc 178 H HDL Cholesterol 39 L TSH 3.93 Free T4 0.87 Medications Medications Current Medications Acetaminophen (Acetaminophen 325 Mg Tablet) 650 mg PO Q6H PRN PRN Reason: Headache/Pain, Scale 1-10 Al Hydroxide/Mg Hydroxide (Magnesium Hydrox/Alum Hydrox 30 Ml Oral.Susp) 30 ml PO Q6H PRN PRN Reason: Heartburn/Nausea Baclofen (Baclofen 10 Mg Tablet) 10 mg PO BEDTIME [facility] Last Admin: 12/08/24 20:31 Dose: 10 mg Benzocaine (Benzocaine 20 % Oral Gel 14 Gm Tube) 1 appl MUCOUS MEM QID PRN; Protocol PRN Reason: oral mucosal pain Clonazepam (Clonazepam 1 Mg Tablet) 1 mg PO BID PRN PRN Reason: Anxiety Last Admin: 12/09/24 08:33 Dose: 1 mg Clonidine HCl (Clonidine Hcl 0.1 Mg Tablet) 0.1 mg PO Q4H PRN; Protocol PRN Reason: w/d Gabapentin (Gabapentin 300 Mg Capsule) 300 mg PO BID [facility] Last Admin: 12/09/24 08:28 Dose: 300 mg Hydroxyzine HCl (Hydroxyzine Hcl 50 Mg Tablet) 50 mg PO Q4H PRN PRN Reason: Anxiety Last Admin: 12/09/24 08:33 Dose: 50 mg Hydroxyzine HCl (Hydroxyzine Hcl 25 Mg Tablet) 25 mg PO Q6H PRN PRN Reason: mild anxiety Ibuprofen (Ibuprofen 800 Mg Tablet) 800 mg PO TID [facility] Last Admin: 12/09/24 08:28 Dose: 800 mg Magnesium Hydroxide (Milk Of Magnesia 30 Ml Oral.Susp) 30 ml PO DAILY PRN PRN Reason: Constipation Methadone HCl (Methadone Hcl 20 Mg/2 Ml Oral.Conc) 140 mg PO DAILY [facility] Last Admin: 12/09/24 08:20 Dose: 140 mg Nicotine (Nicotine 21 Mg Patch.Td24) 21 mg TRANSDERMA DAILY PRN PRN Reason: nicotine craving Nicotine Polacrilex (Nicotine Polacrilex 2 Mg Gum) 4 mg BUCCAL Q1H PRN PRN Reason: Nicotine Cravings Last Admin: 12/08/24 20:33 Dose: 4 mg Nicotine Polacrilex (Nicotine Polacrilex 2 Mg Gum) 2 mg BUCCAL Q2H PRN PRN Reason: Nicotine Cravings Olanzapine (Olanzapine 5 Mg Tablet) 5 mg PO BID PRN PRN Reason: agitation Torsemide (Torsemide 20 Mg Tablet) 20 mg PO DAILY [facility]; Protocol Last Admin: 12/09/24 08:28 Dose: 20 mg Trazodone HCl (Trazodone Hcl 50 Mg Tablet) 50 mg PO BEDTIME MRX1 PRN PRN Reason: Insomnia Last Admin: 12/08/24 21:51 Dose: 50 mg Allergies Allergies Allergy/AdvReac Type Severity Reaction Status Date / Time No Known Allergies Allergy Verified 12/06/24 11:24 Assessment & Plan Assessment & Plan (1) Depression: Status: Acute Code(s): F32.A - Depression, unspecified (2) Suicidal ideation: Status: Acute Code(s): R45.851 - Suicidal ideations Plan HPI: Patient is a 49 years old Citizen Of [place] speaking male with hx of polysubstance use, and depression who arrived to [facility] [place] [place] via ambulance from methadone clinic due to SI and HI. SI with plan to inject litho amounts of cocaine and heroin into his veins. Verbalized to harm his brother by way of weapons I will hurt my brother by tying his wrist to his bed and use weapons on him . Reported that he assisted his brother with rent after he returned home from [facility]. In return his brother began to belittle him and betrated him he told me I am worthless and useless . Also reports that he overdose on drugs a week ago. Relapsed after being 1.5 months sober cocaine is my drug of choice . Formulation/clinical reasoning: Increase in in depression, anxiety, SI/HI with plan to kill himself and killing his brother. Relapsed on substance after 1.5 months sobriety. History of polysubstance use disorder, depression. Given the above information, he would be benefit in restrictive environment for his own safety and safety of others, medication adjustment, refer/patient to [facility] for aftercare. He good like to meet with addiction team taper down on methadone. Hospital course: 12/08/24: Continue with home medication include methadone 140mg daily. Patient on 5 minute checks for high, fall risk and using the walker. Okay to use own foot brace with work boots to support ambulation and balance. 12/09/24: Patient slept good, no issue with appetite. Compliant with medication. He said I do not understand but I am still out of it today . He further explained that he may not taking medication for couple of days and restart since he got here which make him sedated. Denies SI reports HI but improve with no plan or intention to do harm to his brother. Denies hallucinations. He ambulate using the walker, have the work boots on. Remain on 5 minute checks and at night will be on close as he can not return to shoes. Needed to use ambulate when during the night. He met with hospitalist regarding elevated on lipid profile, and BUN. The hospitalist started him on medication for medical conditions. Continue to educate patient on healthy diet and portion size. The addiction team also going to see him today as well. However they will not taking care of able to taper down on methadone. The patient need to address with the outpatient clinic. Patient would like to return to [facility]. 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 He attended groups, social, appropriate. No behavior issues. Atorvastatin 20 mg at bedtime Hydrochlorothiazide 12.5 daily for HTN Motrin 600 t.i.d. for pain/information Lisinopril 5 mg daily for hypertension. Hospitalist reviewed the lipid/lab results with patient/BUN elevated. Encourage fluids. Plan Patient on 5 minute checks for safety. Close off at bedtime-when in bed Admitted to M3. CV. Work with treatment team to do collateral and for [facility] if possible for aftercare. Refer to patient to marketing programs specialist. Patient educated on: diagnosis, medication risk/benefits, substance abuse and therapeutic strategies Informed Consent: further education needed Reason for continued inpatient stay Substantial Risk for: med/psych decompensation Time Spent With Patient Time: Total time managing care of this patient today ____ minutes.
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
[2024-12-09] MEDS: Hydrocortisone 1 % Ointment 28.35 GM TUBE 1 APPL TOPICAL ×2 (12:41→21:39)
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
--- NOTE | 2024-12-09 18:31 | MHC.RECOVRN ---
TW entered referrals for Recovery Coaching and START program at the request of the patient. PT reports he does not currently have a telephone and requested referrals contain his email address a contact information. Email address including at patient's request. Pt declined to provide emergency contact for referral.
[2024-12-09 21:15] VITALS: BP 109/56; PULSE 51; RESP 16; TEMP 36.4; O2SAT 97
[2024-12-10 08:00] VITALS: BP 146/67; PULSE 60; RESP 16; TEMP 36.6; O2SAT 97
[2024-12-10 08:25] VITALS: BP 146/67
[2024-12-10] MEDS: methADONE HCl 20 MG/2 ML ORAL.CONC 140 MG PO (08:34)
[2024-12-10] MEDS: Hydrocortisone 1 % Ointment 28.35 GM TUBE 1 APPL TOPICAL ×2 (09:38→20:38)
[2024-12-10 10:53] VITALS: BP 131/62; PULSE 56; O2SAT 96
--- NOTE | 2024-12-10 13:38 | P.PNPSI_ITS ---
Subjective Subjective Date of Service: 12/10/24 Reason For Visit: SI and HI Subjective Notes: Conditional Voluntary Healthcare Proxy: No Guardianship: No Medical Problems Affecting Mental Status: No Interim History: Medical record and nursing notes reviewed; case discussed during rounds with team/nursing staff, and met with patient for supportive therapy/psychoeducation, as well as medication management. Patient slept well, no issues with appetite. Compliant with meds. Denies side effects, appear slightly sedated. Tolerate well with new meds started yesterday. Was irritable toward the fact that this provider discontinued his PRN 50mg Vistaril and discontinue Nicotine gum 4mg PRN ordered. Denies SI/SIB/AVH. Report HI toward his brother will not go away but denies plan/intent. Continue motivated to go to treatment program and hope he is able to return. However, appears to be negative. Continue encourage fluid and healthy diet. Pending result from [facility] per . Medication Compliance: Yes Side effects from medications: No (Some sedation) Attending Groups: Yes Review of Systems Acute medical concerns: No Medical Review of Systems: unchanged Review of Systems Review of Systems Denies any shortness of breath, chest pain, dizziness, lightheadedness, abdominal pain or discomfort, nausea vomiting or diarrhea Mental Status Exam Mental Status Exam Narrative: Patient is alert and oriented; behavior is cooperative, with mild anxiety and depression, somewhat slightly riitable. patient is not in distress; dressed in hospital attire with kempt hair and adequate hygiene; mood is described as anxious and affect congruent; eye contact appropriate; Speech is normal rate, volume and prosody and not pressured; no psychomotor agitation/retardation present; thought process is organized and goal directed; Thought content is WNL, pertinent to relevant topics and without any delusional content, paranoid ideation or grandiosity; denies any SI/SIB. Report +HI toward brother without plan and intent. Denies AVH. Patient's insight and judgment improved. Diagnostics Vital Signs (24Hr): Vital Signs - 24 hr 12/09/24 21:15 12/10/24 08:00 12/10/24 08:25 Temperature 97.5 F 97.8 F Pulse Rate 51 60 Respiratory Rate 16 16 Blood Pressure 109/56 L 146/67 H 146/67 H Pulse Oximetry 97 97 Oxygen Delivery Method Room Air Room Air 12/10/24 10:53 Temperature Pulse Rate 56 Respiratory Rate Blood Pressure 131/62 Pulse Oximetry 96 Oxygen Delivery Method Room Air BMI result Body Mass Index 40.1 Labs 12/06/24 11:27 12/09/24 08:18 Labs: Laboratory Results - last 48 hr 12/09/24 08:18 Sodium 143 Potassium 4.2 Chloride 106 Carbon Dioxide 27 Anion Gap 14 BUN 27 H Creatinine 1.00 Estim Creat Clear Calc 110.0 Estimated GFR > 60 Random Glucose 99 Estimat Average Glucose 97 Hemoglobin A1c % 5.0 Calcium 9.2 Total Bilirubin 0.2 AST 41 H ALT 44 H Alkaline Phosphatase 72 Total Protein 6.8 Albumin 3.8 Triglycerides 289 H Cholesterol 274 H LDL Cholesterol, Calc 178 H HDL Cholesterol 39 L TSH 3.93 Free T4 0.87 Medications Medications Current Medications Acetaminophen (Acetaminophen 325 Mg Tablet) 650 mg PO Q6H PRN PRN Reason: Headache/Pain, Scale 1-10 Last Admin: 12/10/24 12:35 Dose: 650 mg Al Hydroxide/Mg Hydroxide (Magnesium Hydrox/Alum Hydrox 30 Ml Oral.Susp) 30 ml PO Q6H PRN PRN Reason: Heartburn/Nausea Atorvastatin Calcium (Atorvastatin Calcium 20 Mg Tablet) 20 mg PO BEDTIME TITI Last Admin: 12/09/24 21:08 Dose: 20 mg Baclofen (Baclofen 10 Mg Tablet) 10 mg PO BEDTIME TITI Last Admin: 12/09/24 21:08 Dose: 10 mg Benzocaine (Benzocaine 20 % Oral Gel 14 Gm Tube) 1 appl MUCOUS MEM QID PRN; Protocol PRN Reason: oral mucosal pain Clonazepam (Clonazepam 1 Mg Tablet) 1 mg PO BID PRN PRN Reason: Anxiety Last Admin: 12/10/24 08:26 Dose: 1 mg Gabapentin (Gabapentin 300 Mg Capsule) 300 mg PO BID TITI Last Admin: 12/10/24 08:26 Dose: 300 mg Hydrochlorothiazide (Hydrochlorothiazide 12.5 Mg Tablet) 12.5 mg PO DAILY TITI; Protocol Last Admin: 12/10/24 08:25 Dose: 12.5 mg Hydrocortisone (Hydrocortisone 1 % Ointment 28.35 Gm Tube) 1 appl TOPICAL BID TITI; Protocol Last Admin: 12/10/24 09:38 Dose: 1 appl Hydroxyzine HCl (Hydroxyzine Hcl 50 Mg Tablet) 50 mg PO Q4H PRN PRN Reason: ANIXETY Last Admin: 12/10/24 13:08 Dose: 50 mg Ibuprofen (Ibuprofen 600 Mg Tablet) 600 mg PO TID REPLACED BY [facility] Last Admin: 12/10/24 08:26 Dose: 600 mg Lisinopril (Lisinopril 5 Mg Tablet) 5 mg PO DAILY REPLACED BY [facility]; Protocol Last Admin: 12/10/24 08:26 Dose: 5 mg Magnesium Hydroxide (Milk Of Magnesia 30 Ml Oral.Susp) 30 ml PO DAILY PRN PRN Reason: Constipation Methadone HCl (Methadone Hcl 20 Mg/2 Ml Oral.Conc) 140 mg PO DAILY REPLACED BY [facility] Last Admin: 12/10/24 08:34 Dose: 140 mg Nicotine (Nicotine 21 Mg Patch.Td24) 21 mg TRANSDERMA DAILY PRN PRN Reason: nicotine craving Nicotine Polacrilex (Nicotine Polacrilex 2 Mg Gum) 4 mg BUCCAL Q2H PRN PRN Reason: Nicotine Cravings Olanzapine (Olanzapine 5 Mg Tablet) 5 mg PO BID PRN PRN Reason: agitation Tamsulosin HCl (Tamsulosin Hcl 0.4 Mg Capsule) 0.4 mg PO BEDTIME REPLACED BY [facility] Last Admin: 12/09/24 21:08 Dose: 0.4 mg Trazodone HCl (Trazodone Hcl 50 Mg Tablet) 50 mg PO BEDTIME MRX1 PRN PRN Reason: Insomnia Last Admin: 12/09/24 21:40 Dose: 50 mg Allergies Allergies Allergy/AdvReac Type Severity Reaction Status Date / Time No Known Allergies Allergy Verified 12/06/24 11:24 Assessment & Plan Assessment & Plan (1) Depression: Status: Acute Code(s): F32.A - Depression, unspecified (2) Suicidal ideation: Status: Acute Code(s): R45.851 - Suicidal ideations (3) Homicidal ideation: Status: Acute Code(s): R45.850 - Homicidal ideations (4) HTN (hypertension): Status: Acute Code(s): I10 - Essential (primary) hypertension (5) HLD (hyperlipidemia): Status: Acute Code(s): E78.5 - Hyperlipidemia, unspecified Plan HPI: Patient is a 49 years old Uzbek speaking male with hx of polysubstance use, and depression who arrived to [facility] via ambulance from methadone clinic due to SI and HI. SI with plan to inject litho amounts of cocaine and heroin into his veins. Verbalized to harm his brother by way of weapons I will hurt my brother by tying his wrist to his bed and use weapons on him . Reported that he assisted his brother with rent after he returned home from [facility]. In return his brother began to belittle him and betrated him he told me I am worthless and useless . Also reports that he overdose on drugs a week ago. Relapsed after being 1.5 months sober cocaine is my drug of choice . Formulation/clinical reasoning: Increase in in depression, anxiety, SI/HI with plan to kill himself and killing his brother. Relapsed on substance after 1.5 months sobriety. History of polysubstance use disorder, depression. Given the above information, he would be benefit in restrictive environment for his own safety and safety of others, medication adjustment, refer/patient to [facility] for aftercare. He good like to meet with addiction team taper down on methadone. Hospital course: 12/08/24: Continue with home medication include methadone 140mg daily. Patient on 5 minute checks for high, fall risk and using the walker. Okay to use own foot brace with work boots to support ambulation and balance. 12/09/24: Patient slept good, no issue with appetite. Compliant with medication. He said I do not understand but I am still out of it today . He further explained that he may not taking medication for couple of days and restart since he got here which make him sedated. Denies SI reports HI but improve with no plan or intention to do harm to his brother. Denies hallucinations. He ambulate using the walker, have the work boots on. Remain on 5 minute checks and at night will be on close as he can not return to shoes. Needed to use ambulate when during the night. He met with hospitalist regarding elevated on lipid profile, and BUN. The hospitalist started him on medication for medical conditions. Continue to educate patient on healthy diet and portion size. The addiction team also going to see him today as well. However they will not taking care of able to taper down on methadone. The patient need to address with the outpatient clinic. Patient would like to return to [facility]. track worker is working referral patient back to the program. He attended groups, social, appropriate. No behavior issues. Atorvastatin 20 mg at bedtime Hydrochlorothiazide 12.5 daily for HTN Motrin 600 t.i.d. for pain/information Lisinopril 5 mg daily for hypertension. Hospitalist reviewed the lipid/lab results with patient/BUN elevated. Encourage fluids. 12/10/24: Patient slept well, no issues with appetite. Compliant with meds. Denies side effects, appear slightly sedated. Tolerate well with new meds started yesterday. Was irritable toward the fact that this provider discontinued his PRN 50mg Vistaril and discontinue Nicotine gum 4mg PRN ordered. Denies SI/SIB/AVH. Report HI toward his brother will not go away but denies plan/intent. Continue motivated to go to treatment program and hope he is able to return. However, appears to be negative. Continue encourage fluid and healthy diet. Pending result from [facility] per FLORENTIN. Plan Patient on 5 minute checks for safety. Close off at bedtime-when in bed Admitted to M3. CV. Work with treatment team to do collateral and for [facility] if possible for aftercare. Refer to patient to medical reimbursement specialist. FLORENTIN refers patient to [facility]. Pending result. Patient educated on: diagnosis, medication risk/benefits, substance abuse and therapeutic strategies Informed Consent: understands and further education needed Reason for continued inpatient stay Substantial Risk for: med/psych decompensation Time Spent With Patient Time: Total time managing care of this patient today ____ minutes.
[2024-12-10 23:20] VITALS: BP 119/56; PULSE 50; RESP 18; TEMP 36.4; O2SAT 98
[2024-12-11 07:00] VITALS: BMI 38.6
[2024-12-11 07:46] VITALS: BP 105/58; PULSE 58; RESP 18; TEMP 36.4; O2SAT 96
[2024-12-11] MEDS: methADONE HCl 20 MG/2 ML ORAL.CONC 140 MG PO (07:54)
[2024-12-11] MEDS: Hydrocortisone 1 % Ointment 28.35 GM TUBE 1 APPL TOPICAL ×2 (09:35→19:59)
--- NOTE | 2024-12-11 15:29 | HO.PSYCHPN ---
Subjective Subjective Date of Service: 12/11/24 Reason For Visit: SI and HI Subjective Notes: Conditional Voluntary Healthcare Proxy: No Guardianship: No Medical Problems Affecting Mental Status: No Interim History: Medical record and nursing notes reviewed; case discussed during rounds with team/nursing staff, and met with patient for supportive therapy/psychoeducation, as well as medication management. Continue improve in in terms of anxiety. He worries about placement as we have heard from [facility]. He open to get referral to other places aftercare. Denies suicidal thoughts with HI toward the brother at baseline without plan or intent. Denies side effects from medication. Compliant with medications. Skin the face is improving, no active rashes. We will change hydrocortisone to p.r.n. Medication Compliance: Yes Side effects from medications: No Attending Groups: Yes Review of Systems Acute medical concerns: No Medical Review of Systems: unchanged Review of Systems Review of Systems Denies any shortness of breath, chest pain, dizziness, lightheadedness, abdominal pain or discomfort, nausea vomiting or diarrhea Mental Status Exam Mental Status Exam Narrative: Patient is alert and oriented; behavior is cooperative, with mild anxiety and depression,. patient is not in distress; dressed in hospital attire with kempt hair and adequate hygiene; affect congruent; eye contact appropriate; Speech is normal rate, volume and prosody and not pressured; no psychomotor agitation/retardation present; thought process is organized and goal directed; Thought content is WNL, pertinent to relevant topics and without any delusional content, paranoid ideation or grandiosity; denies any SI/SIB. Report +HI toward brother without plan and intent. Denies AVH. Patient's insight and judgment improved. Diagnostics Vital Signs (24Hr): Vital Signs - 24 hr 12/10/24 23:20 12/11/24 07:46 Temperature 97.5 F 97.5 F Pulse Rate 50 58 Respiratory Rate 18 18 Blood Pressure 119/56 L 105/58 L Pulse Oximetry 98 96 Oxygen Delivery Method Room Air Room Air BMI result Body Mass Index 38.6 Labs 12/06/24 11:27 12/09/24 08:18 Medications Medications Current Medications Acetaminophen (Acetaminophen 325 Mg Tablet) 650 mg PO Q6H PRN PRN Reason: Headache/Pain, Scale 1-10 Last Admin: 12/10/24 12:35 Dose: 650 mg Al Hydroxide/Mg Hydroxide (Magnesium Hydrox/Alum Hydrox 30 Ml Oral.Susp) 30 ml PO Q6H PRN PRN Reason: Heartburn/Nausea Atorvastatin Calcium (Atorvastatin Calcium 20 Mg Tablet) 20 mg PO BEDTIME COUNTS INCLUDE 234 BEDS AT THE [facility] Last Admin: 12/10/24 20:41 Dose: 20 mg Baclofen (Baclofen 10 Mg Tablet) 10 mg PO BEDTIME TITI Last Admin: 12/10/24 20:41 Dose: 10 mg Benzocaine (Benzocaine 20 % Oral Gel 14 Gm Tube) 1 appl MUCOUS MEM QID PRN; Protocol PRN Reason: oral mucosal pain Clonazepam (Clonazepam 1 Mg Tablet) 1 mg PO BID PRN PRN Reason: Anxiety Last Admin: 12/11/24 08:21 Dose: 1 mg Gabapentin (Gabapentin 300 Mg Capsule) 300 mg PO BID COUNTS INCLUDE 234 BEDS AT THE [facility] Last Admin: 12/11/24 08:16 Dose: 300 mg Hydrochlorothiazide (Hydrochlorothiazide 12.5 Mg Tablet) 12.5 mg PO DAILY COUNTS INCLUDE 234 BEDS AT THE [facility]; Protocol Last Admin: 12/11/24 08:15 Dose: 12.5 mg Hydrocortisone (Hydrocortisone 1 % Ointment 28.35 Gm Tube) 1 appl TOPICAL BID TITI; Protocol Last Admin: 12/11/24 09:35 Dose: 1 appl Hydroxyzine HCl (Hydroxyzine Hcl 50 Mg Tablet) 50 mg PO Q4H PRN PRN Reason: ANIXETY Last Admin: 12/11/24 15:13 Dose: 50 mg Ibuprofen (Ibuprofen 600 Mg Tablet) 600 mg PO TID TITI Last Admin: 12/11/24 15:05 Dose: 600 mg Lisinopril (Lisinopril 5 Mg Tablet) 5 mg PO DAILY COUNTS INCLUDE 234 BEDS AT THE [facility]; Protocol Last Admin: 12/11/24 08:16 Dose: 5 mg Magnesium Hydroxide (Milk Of Magnesia 30 Ml Oral.Susp) 30 ml PO DAILY PRN PRN Reason: Constipation Methadone HCl (Methadone Hcl 20 Mg/2 Ml Oral.Conc) 140 mg PO DAILY COUNTS INCLUDE 234 BEDS AT THE [facility] Last Admin: 12/11/24 07:54 Dose: 140 mg Nicotine (Nicotine 21 Mg Patch.Td24) 21 mg TRANSDERMA DAILY PRN PRN Reason: nicotine craving Nicotine Polacrilex (Nicotine Polacrilex 2 Mg Gum) 4 mg BUCCAL Q2H PRN PRN Reason: Nicotine Cravings Last Admin: 12/11/24 08:21 Dose: 4 mg Olanzapine (Olanzapine 5 Mg Tablet) 5 mg PO BID PRN PRN Reason: agitation Tamsulosin HCl (Tamsulosin Hcl 0.4 Mg Capsule) 0.4 mg PO BEDTIME TITI Last Admin: 12/10/24 20:40 Dose: 0.4 mg Trazodone HCl (Trazodone Hcl 50 Mg Tablet) 50 mg PO BEDTIME MRX1 PRN PRN Reason: Insomnia Last Admin: 12/10/24 23:10 Dose: 50 mg Allergies Allergies Allergy/AdvReac Type Severity Reaction Status Date / Time No Known Allergies Allergy Verified 12/06/24 11:24 Assessment & Plan Assessment & Plan (1) Depression: Status: Acute Code(s): F32.A - Depression, unspecified (2) Suicidal ideation: Status: Acute Code(s): R45.851 - Suicidal ideations (3) Homicidal ideation: Status: Acute Code(s): R45.850 - Homicidal ideations (4) HTN (hypertension): Status: Acute Code(s): I10 - Essential (primary) hypertension (5) HLD (hyperlipidemia): Status: Acute Code(s): E78.5 - Hyperlipidemia, unspecified Plan HPI: Patient is a 49 years old Chinese speaking male with hx of polysubstance use, and depression who arrived to [facility] via ambulance from methadone clinic due to SI and HI. SI with plan to inject litho amounts of cocaine and heroin into his veins. Verbalized to harm his brother by way of weapons I will hurt my brother by tying his wrist to his bed and use weapons on him . Reported that he assisted his brother with rent after he returned home from [facility]. In return his brother began to belittle him and betrated him he told me I am worthless and useless . Also reports that he overdose on drugs a week ago. Relapsed after being 1.5 months sober cocaine is my drug of choice . Formulation/clinical reasoning: Increase in in depression, anxiety, SI/HI with plan to kill himself and killing his brother. Relapsed on substance after 1.5 months sobriety. History of polysubstance use disorder, depression. Given the above information, he would be benefit in restrictive environment for his own safety and safety of others, medication adjustment, refer/patient to [facility] for aftercare. He good like to meet with addiction team taper down on methadone. Hospital course: 12/08/24: Continue with home medication include methadone 140mg daily. Patient on 5 minute checks for high, fall risk and using the walker. Okay to use own foot brace with work boots to support ambulation and balance. 12/09/24: Patient slept good, no issue with appetite. Compliant with medication. He said I do not understand but I am still out of it today . He further explained that he may not taking medication for couple of days and restart since he got here which make him sedated. Denies SI reports HI but improve with no plan or intention to do harm to his brother. Denies hallucinations. He ambulate using the walker, have the work boots on. Remain on 5 minute checks and at night will be on close as he can not return to shoes. Needed to use ambulate when during the night. He met with hospitalist regarding elevated on lipid profile, and BUN. The hospitalist started him on medication for medical conditions. Continue to educate patient on healthy diet and portion size. The addiction team also going to see him today as well. However they will not taking care of able to taper down on methadone. The patient need to address with the outpatient clinic. Patient would like to return to [facility]. relief worker is working referral patient back to the program. He attended groups, social, appropriate. No behavior issues. Atorvastatin 20 mg at bedtime Hydrochlorothiazide 12.5 daily for HTN Motrin 600 t.i.d. for pain/information Lisinopril 5 mg daily for hypertension. Hospitalist reviewed the lipid/lab results with patient/BUN elevated. Encourage fluids. 12/10/24: Patient slept well, no issues with appetite. Compliant with meds. Denies side effects, appear slightly sedated. Tolerate well with new meds started yesterday. Was irritable toward the fact that this provider discontinued his PRN 50mg Vistaril and discontinue Nicotine gum 4mg PRN ordered. Denies SI/SIB/AVH. Report HI toward his brother will not go away but denies plan/intent. Continue motivated to go to treatment program and hope he is able to return. However, appears to be negative. Continue encourage fluid and healthy diet. Pending result from [facility] per SW. 12/11/24: Continue improve in in terms of anxiety. He worries about placement as we have heard from [facility]. He open to get referral to other places aftercare. Denies suicidal thoughts with HI toward the brother at baseline without plan or intent. Denies side effects from medication. Compliant with medications. Skin the face is improving, no active rashes. Observe appropriate, attended groups, no major issues. We will change hydrocortisone to p.r.n. Continue with bed search for treatment program per social science manager. Plan Patient on 5 minute checks for safety. Close off at bedtime-when in bed Admitted to M3. CV. Work with treatment team to do collateral and for [facility] if possible for aftercare/[facility]. Refer to patient to him specialists. SW refers patient to [facility]. Pending result. Patient educated on: medication risk/benefits and therapeutic strategies Reason for continued inpatient stay Substantial Risk for: med/psych decompensation Time Spent With Patient Time: Total time managing care of this patient today ____ minutes.
[2024-12-11 19:47] VITALS: BP 109/55; PULSE 54; RESP 16; TEMP 36.4; O2SAT 99
[2024-12-12 08:00] VITALS: BP 125/58; PULSE 55; RESP 16; TEMP 36.4; O2SAT 97
[2024-12-12] MEDS: methADONE HCl 20 MG/2 ML ORAL.CONC 140 MG PO (08:25)
[2024-12-12] MEDS: Hydrocortisone 1 % Ointment 28.35 GM TUBE 1 APPL TOPICAL (11:16)
--- NOTE | 2024-12-12 13:24 | HO.PSYCHPN ---
Subjective Subjective Date of Service: 12/12/24 Reason For Visit: SI and HI Subjective Notes: Conditional Voluntary Healthcare Proxy: No Guardianship: No Medical Problems Affecting Mental Status: No Interim History: Medical record and nursing notes reviewed; case discussed during rounds with team/nursing staff, and met with patient for supportive therapy/psychoeducation, as well as medication management. Patient slept for 8 hours, no issue with appetite. Compliant with medications. He asked questions regarding Zyprexa which he does not know that he has be prescribed. Advised patient not to take it and he does not needed the extra medications. Per record, patient has been given extra medication from p.r.n. list with the scheduled medications which make patient's severe sedated today. Patient was assessed by the hospitalist for possible strokes. However, patient was just overly more sedated than usual. Therefore I make a lot of changes to his PRNs, and lowered down on the methadone down to 130 mg. Nursing make aware that not come by other PRNs and not giving p.r.n. combined with scheduled medications. Hold for sedation. Medication Compliance: Yes Side effects from medications: No (Severe sedation) Attending Groups: Intermittent (Due to sedation) Review of Systems Medical Review of Systems: unchanged Review of Systems Review of Systems Denies any shortness of breath, chest pain, dizziness, lightheadedness, abdominal pain or discomfort, nausea vomiting or diarrhea. Sedated. Mental Status Exam Mental Status Exam Narrative: Patient is alert and oriented; behavior is cooperative,. patient is not in distress but severely sedated; dressed in own casual attire with kempt hair and adequate hygiene; affect congruent; eye contact appropriate; Speech is normal rate, volume and prosody and not pressured; no psychomotor agitation/retardation present; thought process is organized and goal directed; Thought content is WNL, pertinent to relevant topics and without any delusional content, paranoid ideation or grandiosity; denies any SI/SIB. Report +HI toward brother without plan and intent. Denies AVH. Patient's insight and judgment improved. Diagnostics Vital Signs (24Hr): Vital Signs - 24 hr 12/11/24 19:47 12/12/24 08:00 Temperature 97.6 F 97.6 F Pulse Rate 54 55 Respiratory Rate 16 16 Blood Pressure 109/55 L 125/58 L Pulse Oximetry 99 97 Oxygen Delivery Method Room Air Room Air BMI result Body Mass Index 38.6 Labs 12/12/24 16:33 12/12/24 16:33 Medications Medications Current Medications Acetaminophen (Acetaminophen 325 Mg Tablet) 650 mg PO Q6H PRN PRN Reason: Headache/Pain, Scale 1-10 Last Admin: 12/10/24 12:35 Dose: 650 mg Al Hydroxide/Mg Hydroxide (Magnesium Hydrox/Alum Hydrox 30 Ml Oral.Susp) 30 ml PO Q6H PRN PRN Reason: Heartburn/Nausea Atorvastatin Calcium (Atorvastatin Calcium 20 Mg Tablet) 20 mg PO BEDTIME TITI Last Admin: 12/11/24 20:01 Dose: 20 mg Baclofen (Baclofen 10 Mg Tablet) 10 mg PO BEDTIME TITI Last Admin: 12/11/24 20:01 Dose: 10 mg Benzocaine (Benzocaine 20 % Oral Gel 14 Gm Tube) 1 appl MUCOUS MEM QID PRN; Protocol PRN Reason: oral mucosal pain Clonazepam (Clonazepam 1 Mg Tablet) 1 mg PO BID PRN PRN Reason: Anxiety Last Admin: 12/12/24 08:29 Dose: 1 mg Gabapentin (Gabapentin 300 Mg Capsule) 300 mg PO BID [facility] Last Admin: 12/12/24 08:28 Dose: 300 mg Hydrochlorothiazide (Hydrochlorothiazide 12.5 Mg Tablet) 12.5 mg PO DAILY TITI; Protocol Last Admin: 12/12/24 08:28 Dose: 12.5 mg Hydrocortisone (Hydrocortisone 1 % Ointment 28.35 Gm Tube) 1 appl TOPICAL BID TITI; Protocol Last Admin: 12/12/24 11:16 Dose: 1 appl Hydroxyzine HCl (Hydroxyzine Hcl 50 Mg Tablet) 50 mg PO Q4H PRN PRN Reason: ANIXETY Last Admin: 12/12/24 08:29 Dose: 50 mg Ibuprofen (Ibuprofen 600 Mg Tablet) 600 mg PO TID TTII Last Admin: 12/12/24 08:28 Dose: 600 mg Lisinopril (Lisinopril 5 Mg Tablet) 5 mg PO DAILY TITI; Protocol Last Admin: 12/12/24 08:28 Dose: 5 mg Magnesium Hydroxide (Milk Of Magnesia 30 Ml Oral.Susp) 30 ml PO DAILY PRN PRN Reason: Constipation Methadone HCl (Methadone Hcl 20 Mg/2 Ml Oral.Conc) 140 mg PO DAILY TITI Last Admin: 12/12/24 08:25 Dose: 140 mg Nicotine (Nicotine 21 Mg Patch.Td24) 21 mg TRANSDERMA DAILY PRN PRN Reason: nicotine craving Nicotine Polacrilex (Nicotine Polacrilex 2 Mg Gum) 4 mg BUCCAL Q2H PRN PRN Reason: Nicotine Cravings Last Admin: 12/12/24 08:30 Dose: 4 mg Olanzapine (Olanzapine 5 Mg Tablet) 5 mg PO BID PRN PRN Reason: agitation Last Admin: 12/12/24 08:29 Dose: 5 mg Tamsulosin HCl (Tamsulosin Hcl 0.4 Mg Capsule) 0.4 mg PO BEDTIME TITI Last Admin: 12/11/24 20:01 Dose: 0.4 mg Trazodone HCl (Trazodone Hcl 50 Mg Tablet) 50 mg PO BEDTIME MRX1 PRN PRN Reason: Insomnia Last Admin: 12/11/24 20:52 Dose: 50 mg Allergies Allergies Allergy/AdvReac Type Severity Reaction Status Date / Time No Known Allergies Allergy Verified 12/06/24 11:24 Assessment & Plan Assessment & Plan (1) Depression: Status: Acute Code(s): F32.A - Depression, unspecified (2) Suicidal ideation: Status: Acute Code(s): R45.851 - Suicidal ideations (3) Homicidal ideation: Status: Acute Code(s): R45.850 - Homicidal ideations (4) HTN (hypertension): Status: Acute Code(s): I10 - Essential (primary) hypertension (5) HLD (hyperlipidemia): Status: Acute Code(s): E78.5 - Hyperlipidemia, unspecified Plan HPI: Patient is a 49 years old Latvian speaking male with hx of polysubstance use, and depression who [place] [facility] [place] from methadone clinic due to SI and HI. SI with plan to inject litho amounts of cocaine and heroin into his veins. Verbalized to harm his brother by way of weapons I will hurt my brother by tying his wrist to his bed and use weapons on him . Reported that he assisted his brother with rent after he returned home from [facility]. In return his brother began to belittle him and betrated him he told me I am worthless and useless . Also reports that he overdose on drugs a week ago. Relapsed after being 1.5 months sober cocaine is my drug of choice . Formulation/clinical reasoning: Increase in in depression, anxiety, SI/HI with plan to kill himself and killing his brother. Relapsed on substance after 1.5 months sobriety. History of polysubstance use disorder, depression. Given the above information, he would be benefit in restrictive environment for his own safety and safety of others, medication adjustment, refer/patient to [facility] for aftercare. He good like to meet with addiction team taper down on methadone. Hospital course: 12/08/24: Continue with home medication include methadone 140mg daily. Patient on 5 minute checks for high, fall risk and using the walker. Okay to use own foot brace with work boots to support ambulation and balance. 12/09/24: Patient slept good, no issue with appetite. Compliant with medication. He said I do not understand but I am still out of it today . He further explained that he may not taking medication for couple of days and restart since he got here which make him sedated. Denies SI reports HI but improve with no plan or intention to do harm to his brother. Denies hallucinations. He ambulate using the walker, have the work boots on. Remain on 5 minute checks and at night will be on close as he can not return to shoes. Needed to use ambulate when during the night. He met with hospitalist regarding elevated on lipid profile, and BUN. The hospitalist started him on medication for medical conditions. Continue to educate patient on healthy diet and portion size. The addiction team also going to see him today as well. However they will not taking care of able to taper down on methadone. The patient need to address with the outpatient clinic. Patient would like to return to [facility]. hot iron worker is working referral patient back to the program. He attended groups, social, appropriate. No behavior issues. Atorvastatin 20 mg at bedtime Hydrochlorothiazide 12.5 daily for HTN Motrin 600 t.i.d. for pain/information Lisinopril 5 mg daily for hypertension. Hospitalist reviewed the lipid/lab results with patient/BUN elevated. Encourage fluids. 12/10/24: Patient slept well, no issues with appetite. Compliant with meds. Denies side effects, appear slightly sedated. Tolerate well with new meds started yesterday. Was irritable toward the fact that this provider discontinued his PRN 50mg Vistaril and discontinue Nicotine gum 4mg PRN ordered. Denies SI/SIB/AVH. Report HI toward his brother will not go away but denies plan/intent. Continue motivated to go to treatment program and hope he is able to return. However, appears to be negative. Continue encourage fluid and healthy diet. Pending result from [facility] per [place]. 12/11/24: Continue improve in in terms of anxiety. He worries about placement as we have heard from [facility]. He open to get referral to other places aftercare. Denies suicidal thoughts with HI toward the brother at baseline without plan or intent. Denies side effects from medication. Compliant with medications. Skin the face is improving, no active rashes. Observe appropriate, attended groups, no major issues. We will change hydrocortisone to p.r.n. Continue with bed search for treatment program per administrator social welfare. 12/12/24: Patient slept for 8 hours, no issue with appetite. Compliant with medications. He asked questions regarding Zyprexa which he does not know that he has be prescribed. Advised patient not to take it and he does not needed the extra medications. Per record, patient has been given extra medication from p.r.n. list with the scheduled medications which make patient's severe sedated today. Patient was assessed by the hospitalist for possible strokes. However, patient was just overly more sedated than usual. Therefore I make a lot of changes to his PRNs, and lowered down on the methadone down to 130 mg. Nursing make aware that not come by other PRNs and not giving p.r.n. combined with scheduled medications. Hold for sedation. Plan Patient on 5 minute checks for safety. Close off at bedtime-when in bed Admitted to M3. CV. Work with treatment team to do collateral and for CSS/CCS if possible for aftercare/[facility]. Refer to patient to child specialist. SW refers patient to [facility]. Pending result. Patient educated on: medication risk/benefits and therapeutic strategies Informed Consent: further education needed Reason for continued inpatient stay Substantial Risk for: med/psych decompensation Time Spent With Patient Time: Total time managing care of this patient today ____ minutes.
[2024-12-12 15:30] VITALS: BP 139/69
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
[2024-12-12 16:46] LABS: MANUAL DIFF FLAG NO
[2024-12-12 16:48] LABS: Hematocrit 36.3 % (42.0-52.0); Hemoglobin 12.0 g/dl (14.0-18.0); Imm Gran Abs Auto 0.04 X10*3/uL (0.00-0.03); Imm Gran Pct Auto 0.6 % (0.0-0.4); Lymphocytes Absolute Auto 1.3 X10*3/uL (1.2-4.9); Mean Corpuscular HGB Conc 33.1 g/dl (31.0-36.0); Mean Corpuscular Hemoglobin 28.2 pg (27.0-33.0); Mean Corpuscular Volume 85.4 fL (80.0-98.0); NRBC Abs Auto 0.000 X10*3/uL (0.0-0.012); NRBC Pct Auto 0.0 /100WBC (0.0-0.2); Platelet Count 228 X10*3/uL (160-400); Red Blood Count 4.25 X10*6/uL (4.60-5.80); White Blood Count 6.7 X10*3/uL (4.8-10.8)
[2024-12-12 17:03] LABS: Anion Gap 13 (12-20); Blood Urea Nitrogen 25 mg/dL (9-16); Calcium 9.4 mg/dL (8.4-10.2); Carbon Dioxide 27 mmol/L (22-29); Chloride 104 mmol/L (96-108); Creatinine Clr Calc Pharmacy 92.9; Estimated Glomerular Filt Rate > 60; Potassium 4.4 mmol/L (3.3-5.1); Sodium 140 mmol/L (135-145)
[2024-12-12] MEDS: traZODone HCL 25 MG HALFTAB PO (23:03)
[2024-12-13 08:00] VITALS: BP 130/57; PULSE 53; RESP 16; TEMP 36.6; O2SAT 100
[2024-12-13] MEDS: methADONE HCl 20 MG/2 ML ORAL.CONC 130 MG PO (08:28)
--- NOTE | 2024-12-13 08:55 | HO.PSYCHPN ---
Subjective Subjective Date of Service: 12/13/24 Reason For Visit: SI and HI Subjective Notes: Conditional Voluntary Healthcare Proxy: No Guardianship: No Medical Problems Affecting Mental Status: No Interim History: Medical record and nursing notes reviewed; case discussed during rounds with team/nursing staff, and met with patient for supportive therapy/psychoeducation, as well as medication management. Patient slept for 3.5 hours last night. Per nursing, patient is calm, less sedated and has no irritable regarding meds changes made yesterday d/t severe sedation. However, patient was not happy with the fact that he cannot take PRN with scheduled and cannot combine PRN together. Patient appears less sedated today. Visible in common areas and attended groups. No major behaviors. Medication Compliance: Yes Side effects from medications: Yes (sedation) Attending Groups: Yes Review of Systems Acute medical concerns: No Medical Review of Systems: unchanged Review of Systems Review of Systems Denies any shortness of breath, chest pain, dizziness, lightheadedness, abdominal pain or discomfort, nausea vomiting or diarrhea. Sedated. Mental Status Exam Mental Status Exam Narrative: Patient is alert and oriented; behavior is cooperative,. patient is not in distress and less sedated; dressed in own casual attire with kempt hair and adequate hygiene;affect congruent; eye contact appropriate; Speech is normal rate, volume and prosody and not pressured; no psychomotor agitation/retardation present; thought process is organized and goal directed; Thought content is WNL, pertinent to relevant topics and without any delusional content, paranoid ideation or grandiosity; no SI/SIB or HI expressed. Denies AVH. Patient's insight and judgment improved. Diagnostics Vital Signs (24Hr): Vital Signs - 24 hr 12/12/24 15:30 12/13/24 08:00 Temperature 97.8 F Pulse Rate 53 Respiratory Rate 16 Blood Pressure 139/69 130/57 L Pulse Oximetry 100 Oxygen Delivery Method Room Air BMI result Body Mass Index 38.6 Labs 12/12/24 16:33 12/12/24 16:33 Labs: Laboratory Results - last 48 hr 12/12/24 16:33 WBC 6.7 RBC 4.25 L Hgb 12.0 L Hct 36.3 L MCV 85.4 MCH 28.2 MCHC 33.1 RDW 13.2 Plt Count 228 MPV 9.1 L Immature Gran % (Auto) 0.6 H Neut % (Auto) 70.6 Lymph % (Auto) 18.6 L Ashley % (Auto) 8.2 Eos % (Auto) 1.6 Baso % (Auto) 0.4 Lymph # (Auto) 1.3 Ashley # (Auto) 0.6 Eos # (Auto) 0.1 Baso # (Auto) 0.0 Abs Immat Gran (auto) 0.04 H Absolute Neuts (auto) 4.7 Absolute Nucleated RBC 0.000 Nucleated RBC % (auto) 0.0 Sodium 140 Potassium 4.4 Chloride 104 Carbon Dioxide 27 Anion Gap 13 BUN 25 H Creatinine 1.16 Estim Creat Clear Calc 92.9 Estimated GFR > 60 Random Glucose 103 Calcium 9.4 Medications Medications Current Medications Acetaminophen (Acetaminophen 325 Mg Tablet) 650 mg PO Q6H PRN PRN Reason: Headache/Pain, Scale 1-10 Last Admin: 12/10/24 12:35 Dose: 650 mg Al Hydroxide/Mg Hydroxide (Magnesium Hydrox/Alum Hydrox 30 Ml Oral.Susp) 30 ml PO Q6H PRN PRN Reason: Heartburn/Nausea Atorvastatin Calcium (Atorvastatin Calcium 20 Mg Tablet) 20 mg PO BEDTIME TITI Last Admin: 12/12/24 21:07 Dose: 20 mg Baclofen (Baclofen 10 Mg Tablet) 10 mg PO BEDTIME PRN PRN Reason: Muscle Spasm Last Admin: 12/12/24 21:08 Dose: 10 mg Benzocaine (Benzocaine 20 % Oral Gel 14 Gm Tube) 1 appl MUCOUS MEM QID PRN; Protocol PRN Reason: oral mucosal pain Clonazepam (Clonazepam 1 Mg Tablet) 1 mg PO BID PRN PRN Reason: Anxiety Last Admin: 12/12/24 23:03 Dose: 1 mg Gabapentin (Gabapentin 300 Mg Capsule) 300 mg PO BID TITI Last Admin: 12/13/24 08:30 Dose: 300 mg Hydrochlorothiazide (Hydrochlorothiazide 12.5 Mg Tablet) 12.5 mg PO DAILY TITI; Protocol Last Admin: 12/13/24 08:30 Dose: 12.5 mg Hydrocortisone (Hydrocortisone 1 % Ointment 28.35 Gm Tube) 1 appl TOPICAL BID TITI; Protocol Last Admin: 12/13/24 08:42 Dose: Not Given Hydroxyzine HCl (Hydroxyzine Hcl 50 Mg Tablet) 50 mg PO Q6H PRN PRN Reason: ANIXETY Last Admin: 12/13/24 03:54 Dose: 50 mg Ibuprofen (Ibuprofen 600 Mg Tablet) 600 mg PO TID PRN PRN Reason: severe foot pain Last Admin: 12/12/24 21:08 Dose: 600 mg Lisinopril (Lisinopril 5 Mg Tablet) 5 mg PO DAILY [facility]; Protocol Last Admin: 12/13/24 08:30 Dose: 5 mg Magnesium Hydroxide (Milk Of Magnesia 30 Ml Oral.Susp) 30 ml PO DAILY PRN PRN Reason: Constipation Methadone HCl (Methadone Hcl 20 Mg/2 Ml Oral.Conc) 130 mg PO DAILY TITI Last Admin: 12/13/24 08:28 Dose: 130 mg Nicotine (Nicotine 21 Mg Patch.Td24) 21 mg TRANSDERMA DAILY PRN PRN Reason: nicotine craving Nicotine Polacrilex (Nicotine Polacrilex 2 Mg Gum) 4 mg BUCCAL Q2H PRN PRN Reason: Nicotine Cravings Last Admin: 12/13/24 03:50 Dose: 4 mg Tamsulosin HCl (Tamsulosin Hcl 0.4 Mg Capsule) 0.4 mg PO BEDTIME TITI Last Admin: 12/12/24 21:07 Dose: 0.4 mg Trazodone HCl (Trazodone Hcl 25 Mg Halftab) 25 mg PO BEDTIME PRN PRN Reason: Insomnia Last Admin: 12/12/24 23:03 Dose: 25 mg Allergies Allergies Allergy/AdvReac Type Severity Reaction Status Date / Time No Known Allergies Allergy Verified 12/06/24 11:24 Assessment & Plan Assessment & Plan (1) Depression: Status: Acute Code(s): F32.A - Depression, unspecified (2) Suicidal ideation: Status: Acute Code(s): R45.851 - Suicidal ideations (3) Homicidal ideation: Status: Acute Code(s): R45.850 - Homicidal ideations (4) HTN (hypertension): Status: Acute Code(s): I10 - Essential (primary) hypertension (5) HLD (hyperlipidemia): Status: Acute Code(s): E78.5 - Hyperlipidemia, unspecified Plan HPI: Patient is a 49 years old Citizen [place] speaking male with hx of polysubstance use, and depression who arrived to [facility] via ambulance from methadone clinic due to SI and HI. SI with plan to inject litho amounts of cocaine and heroin into his veins. Verbalized to harm his brother by way of weapons I will hurt my brother by tying his wrist to his bed and use weapons on him . Reported that he assisted his brother with rent after he returned home from [facility]. In return his brother began to belittle him and betrated him he told me I am worthless and useless . Also reports that he overdose on drugs a week ago. Relapsed after being 1.5 months sober cocaine is my drug of choice . Formulation/clinical reasoning: Increase in in depression, anxiety, SI/HI with plan to kill himself and killing his brother. Relapsed on substance after 1.5 months sobriety. History of polysubstance use disorder, depression. Given the above information, he would be benefit in restrictive environment for his own safety and safety of others, medication adjustment, refer/patient to [facility] for aftercare. He good like to meet with addiction team taper down on methadone. Hospital course: 12/08/24: Continue with home medication include methadone 140mg daily. Patient on 5 minute checks for high, fall risk and using the walker. Okay to use own foot brace with work boots to support ambulation and balance. 12/09/24: Patient slept good, no issue with appetite. Compliant with medication. He said I do not understand but I am still out of it today . He further explained that he may not taking medication for couple of days and restart since he got here which make him sedated. Denies SI reports HI but improve with no plan or intention to do harm to his brother. Denies hallucinations. He ambulate using the walker, have the work boots on. Remain on 5 minute checks and at night will be on close as he can not return to shoes. Needed to use ambulate when during the night. He met with hospitalist regarding elevated on lipid profile, and BUN. The hospitalist started him on medication for medical conditions. Continue to educate patient on healthy diet and portion size. The addiction team also going to see him today as well. However they will not taking care of able to taper down on methadone. The patient need to address with the outpatient clinic. Patient would like to return to [facility]. button station worker is working referral patient back to the program. He attended groups, social, appropriate. No behavior issues. Atorvastatin 20 mg at bedtime Hydrochlorothiazide 12.5 daily for HTN Motrin 600 t.i.d. for pain/information Lisinopril 5 mg daily for hypertension. Hospitalist reviewed the lipid/lab results with patient/BUN elevated. Encourage fluids. 12/10/24: Patient slept well, no issues with appetite. Compliant with meds. Denies side effects, appear slightly sedated. Tolerate well with new meds started yesterday. Was irritable toward the fact that this provider discontinued his PRN 50mg Vistaril and discontinue Nicotine gum 4mg PRN ordered. Denies SI/SIB/AVH. Report HI toward his brother will not go away but denies plan/intent. Continue motivated to go to treatment program and hope he is able to return. However, appears to be negative. Continue encourage fluid and healthy diet. Pending result from [facility] per SW. 12/11/24: Continue improve in in terms of anxiety. He worries about placement as we have heard from [facility]. He open to get referral to other places aftercare. Denies suicidal thoughts with HI toward the brother at baseline without plan or intent. Denies side effects from medication. Compliant with medications. Skin the face is improving, no active rashes. Observe appropriate, attended groups, no major issues. We will change hydrocortisone to p.r.n. Continue with bed search for treatment program per psych social worker. 12/12/24: Patient slept for 8 hours, no issue with appetite. Compliant with medications. He asked questions regarding Zyprexa which he does not know that he has be prescribed. Advised patient not to take it and he does not needed the extra medications. Per record, patient has been given extra medication from p.r.n. list with the scheduled medications which make patient's severe sedated today. Patient was assessed by the hospitalist for possible strokes. However, patient was just overly more sedated than usual. Therefore I make a lot of changes to his PRNs, and lowered down on the methadone down to 130 mg. Nursing make aware that not come by other PRNs and not giving p.r.n. combined with scheduled medications. Hold for sedation. 12/13/24: Patient slept for 3.5 hours last night. Per nursing, patient is calm, less sedated and has no irritable regarding meds changes made yesterday d/t severe sedation. However, patient was not happy with the fact that he cannot take PRN with scheduled and cannot combine PRN together. Patient appears less sedated today. Visible in common areas and attended groups. No major behaviors. CMP to check kidney functions. Plan Patient on 5 minute checks for safety. Close off at bedtime-when in bed Admitted to M3. CV. Work with treatment team to do collateral and for CSS/CCS if possible for aftercare/[facility]. Refer to patient to counseling specialist. SW refers patient to [facility]. Pending result. Patient educated on: medication risk/benefits and therapeutic strategies Informed Consent: understands and further education needed Reason for continued inpatient stay Substantial Risk for: med/psych decompensation Time Spent With Patient Time: Total time managing care of this patient today ____ minutes.
[2024-12-13] MEDS: Magnesium Hydrox/Alum Hydrox 30 ML ORAL.SUSP PO (18:45)
[2024-12-13 19:42] VITALS: BP 128/62; PULSE 58; RESP 16; TEMP 36.7; O2SAT 97
[2024-12-13] MEDS: traZODone HCL 25 MG HALFTAB PO (23:10)
[2024-12-14 08:00] VITALS: BP 130/65; PULSE 61; RESP 18; TEMP 36.6; O2SAT 99
[2024-12-14] MEDS: methADONE HCl 20 MG/2 ML ORAL.CONC 130 MG PO (08:13)
[2024-12-14 09:01] LABS: Alanine Aminotransferase 43 U/L (0-40); Albumin Level 4.0 g/dL (3.5-5.0); Alkaline Phosphatase 78 U/L (39-117); Anion Gap 15 (12-20); Aspartate Amino Transferase 47 U/L (5-37); Blood Urea Nitrogen 25 mg/dL (9-16); Calcium 9.0 mg/dL (8.4-10.2); Carbon Dioxide 25 mmol/L (22-29); Chloride 103 mmol/L (96-108); Creatinine Clr Calc Pharmacy 115.9; Estimated Glomerular Filt Rate > 60; Potassium 4.2 mmol/L (3.3-5.1); Sodium 139 mmol/L (135-145); Total Protein 6.9 g/dL (6.5-8.0)
[2024-12-14] MEDS: Magnesium Hydrox/Alum Hydrox 30 ML ORAL.SUSP PO (15:49)
[2024-12-14 20:00] VITALS: BP 158/89; PULSE 66; RESP 16; TEMP 36.7; O2SAT 98
[2024-12-14] MEDS: traZODone HCL 25 MG HALFTAB PO (20:35)
--- NOTE | 2024-12-14 22:39 | P.PNPSI_ITS ---
Subjective Subjective Date of Service: 12/14/24 Reason For Visit: SI and HI Subjective Notes: Conditional Voluntary Healthcare Proxy: No Guardianship: No Medical Problems Affecting Mental Status: No Interim History: Medical record and nursing notes reviewed; case discussed during rounds with team/nursing staff, and met with patient for supportive therapy/psychoeducation, as well as medication management. Patient slept for 8 hours, less sedated yesterday, was medication compliant. Can be labile, forgetful which is at his baseline. Appears to be sedated this morning, but visible working on activities. He is aware the the fact that he is sedated but do not want to taper down or having medication taken away. He does not remember he expressed on the 1st day that he wants to take lower down his methadone. Patient is aware of labs results to make sure we check the baseline for kidney functions. Continued to encourage fluid. No safety concerns, social appropriate slept with peers and staff. Less irritable, reports anxiety but does not appear to be anxious Medication Compliance: Yes Side effects from medications: Yes (sedation ) Attending Groups: Yes Review of Systems Acute medical concerns: No Medical Review of Systems: unchanged Review of Systems Review of Systems Denies any shortness of breath, chest pain, dizziness, lightheadedness, abdominal pain or discomfort, nausea vomiting or diarrhea. Sedated. Mental Status Exam Mental Status Exam Narrative: Patient is alert and oriented; behavior is cooperative,. patient is not in distress and less sedated; dressed in own casual attire with kempt hair and adequate hygiene;affect congruent; eye contact appropriate; Speech is normal rate, volume and prosody and not pressured; no psychomotor agitation/retardation present; thought process is organized and goal directed; Thought content is WNL, pertinent to relevant topics and without any delusional content, paranoid ideation or grandiosity; no SI/SIB or HI expressed. Denies AVH. Patient's insight and judgment improved. Diagnostics Vital Signs (24Hr): Vital Signs - 24 hr 12/14/24 08:00 12/14/24 20:00 Temperature 97.9 F 98.1 F Pulse Rate 61 66 Respiratory Rate 18 16 Blood Pressure 130/65 158/89 H Pulse Oximetry 99 98 Oxygen Delivery Method Room Air Room Air BMI result Body Mass Index 38.6 Labs 12/12/24 16:33 12/14/24 07:31 Labs: Laboratory Results - last 48 hr 12/14/24 07:31 Sodium 139 Potassium 4.2 Chloride 103 Carbon Dioxide 25 Anion Gap 15 BUN 25 H Creatinine 0.93 Estim Creat Clear Calc 115.9 Estimated GFR > 60 Random Glucose 78 Calcium 9.0 Total Bilirubin 0.3 AST 47 H ALT 43 H Alkaline Phosphatase 78 Total Protein 6.9 Albumin 4.0 Medications Medications Current Medications Acetaminophen (Acetaminophen 325 Mg Tablet) 650 mg PO Q6H PRN PRN Reason: Headache/Pain, Scale 1-10 Last Admin: 12/10/24 12:35 Dose: 650 mg Al Hydroxide/Mg Hydroxide (Magnesium Hydrox/Alum Hydrox 30 Ml Oral.Susp) 30 ml PO Q6H PRN PRN Reason: Heartburn/Nausea Last Admin: 12/14/24 15:49 Dose: 30 ml Atorvastatin Calcium (Atorvastatin Calcium 20 Mg Tablet) 20 mg PO BEDTIME TITI Last Admin: 12/14/24 20:19 Dose: 20 mg Baclofen (Baclofen 10 Mg Tablet) 10 mg PO BEDTIME PRN PRN Reason: Muscle Spasm Last Admin: 12/14/24 20:21 Dose: 10 mg Benzocaine (Benzocaine 20 % Oral Gel 14 Gm Tube) 1 appl MUCOUS MEM QID PRN; Protocol PRN Reason: oral mucosal pain Calcium Carbonate (Calcium Carbonate 750 Mg Tab.Chew) 750 mg PO Q4H PRN PRN Reason: Heartburn Last Admin: 12/13/24 20:32 Dose: 750 mg Clonazepam (Clonazepam 1 Mg Tablet) 1 mg PO BID PRN PRN Reason: Anxiety Last Admin: 12/14/24 20:21 Dose: 1 mg Gabapentin (Gabapentin 300 Mg Capsule) 300 mg PO BID TITI Last Admin: 12/14/24 20:19 Dose: 300 mg Hydrochlorothiazide (Hydrochlorothiazide 12.5 Mg Tablet) 12.5 mg PO DAILY TITI; Protocol Last Admin: 12/14/24 08:12 Dose: 12.5 mg Hydrocortisone (Hydrocortisone 1 % Ointment 28.35 Gm Tube) 1 appl TOPICAL BID PRN; Protocol PRN Reason: rash Hydroxyzine HCl (Hydroxyzine Hcl 50 Mg Tablet) 50 mg PO Q6H PRN PRN Reason: ANIXETY Last Admin: 12/14/24 18:59 Dose: 50 mg Ibuprofen (Ibuprofen 600 Mg Tablet) 600 mg PO TID PRN PRN Reason: severe foot pain Last Admin: 12/14/24 20:20 Dose: 600 mg Lisinopril (Lisinopril 5 Mg Tablet) 5 mg PO DAILY TITI; Protocol Last Admin: 12/14/24 08:12 Dose: 5 mg Magnesium Hydroxide (Milk Of Magnesia 30 Ml Oral.Susp) 30 ml PO DAILY PRN PRN Reason: Constipation Methadone HCl (Methadone Hcl 20 Mg/2 Ml Oral.Conc) 130 mg PO DAILY TITI Last Admin: 12/14/24 08:13 Dose: 130 mg Nicotine (Nicotine 21 Mg Patch.Td24) 21 mg TRANSDERMA DAILY PRN PRN Reason: nicotine craving Nicotine Polacrilex (Nicotine Polacrilex 2 Mg Gum) 4 mg BUCCAL Q2H PRN PRN Reason: Nicotine Cravings Last Admin: 12/14/24 20:21 Dose: 4 mg Tamsulosin HCl (Tamsulosin Hcl 0.4 Mg Capsule) 0.4 mg PO BEDTIME TITI Last Admin: 12/14/24 20:19 Dose: 0.4 mg Trazodone HCl (Trazodone Hcl 25 Mg Halftab) 25 mg PO BEDTIME PRN PRN Reason: Insomnia Last Admin: 12/14/24 20:35 Dose: 25 mg Allergies Allergies Allergy/AdvReac Type Severity Reaction Status Date / Time No Known Allergies Allergy Verified 12/06/24 11:24 Assessment & Plan Assessment & Plan (1) Depression: Status: Acute Code(s): F32.A - Depression, unspecified (2) Suicidal ideation: Status: Acute Code(s): R45.851 - Suicidal ideations (3) Homicidal ideation: Status: Acute Code(s): R45.850 - Homicidal ideations (4) HTN (hypertension): Status: Acute Code(s): I10 - Essential (primary) hypertension (5) HLD (hyperlipidemia): Status: Acute Code(s): E78.5 - Hyperlipidemia, unspecified Plan HPI: Patient is a 49 years old Pakistani speaking male with hx of polysubstance use, and depression who arrived to [facility] via ambulance from methadone clinic due to SI and HI. SI with plan to inject litho amounts of cocaine and heroin into his veins. Verbalized to harm his brother by way of weapons I will hurt my brother by tying his wrist to his bed and use weapons on him . Reported that he assisted his brother with rent after he returned home from [facility]. In return his brother began to belittle him and betrated him he told me I am worthless and useless . Also reports that he overdose on drugs a week ago. Relapsed after being 1.5 months sober cocaine is my drug of choice . Formulation/clinical reasoning: Increase in in depression, anxiety, SI/HI with plan to kill himself and killing his brother. Relapsed on substance after 1.5 months sobriety. History of polysubstance use disorder, depression. Given the above information, he would be benefit in restrictive environment for his own safety and safety of others, medication adjustment, refer/patient to [facility] for aftercare. He good like to meet with addiction team taper down on methadone. Hospital course: 12/08/24: Continue with home medication include methadone 140mg daily. Patient on 5 minute checks for high, fall risk and using the walker. Okay to use own foot brace with work boots to support ambulation and balance. 12/09/24: Patient slept good, no issue with appetite. Compliant with medication. He said I do not understand but I am still out of it today . He further explained that he may not taking medication for couple of days and restart since he got here which make him sedated. Denies SI reports HI but improve with no plan or intention to do harm to his brother. Denies hallucinations. He ambulate using the walker, have the work boots on. Remain on 5 minute checks and at night will be on close as he can not return to shoes. Needed to use ambulate when during the night. He met with hospitalist regarding elevated on lipid profile, and BUN. The hospitalist started him on medication for medical conditions. Continue to educate patient on healthy diet and portion size. The addiction team also going to see him today as well. However they will not taking care of able to taper down on methadone. The patient need to address with the outpatient clinic. Patient would like to return to [facility]. workers compensation defense attorney is working referral patient back to the program. He attended groups, social, appropriate. No behavior issues. Atorvastatin 20 mg at bedtime Hydrochlorothiazide 12.5 daily for HTN Motrin 600 t.i.d. for pain/information Lisinopril 5 mg daily for hypertension. Hospitalist reviewed the lipid/lab results with patient/BUN elevated. Encourage fluids. 12/10/24: Patient slept well, no issues with appetite. Compliant with meds. Denies side effects, appear slightly sedated. Tolerate well with new meds started yesterday. Was irritable toward the fact that this provider discontinued his PRN 50mg Vistaril and discontinue Nicotine gum 4mg PRN ordered. Denies SI/SIB/AVH. Report HI toward his brother will not go away but denies plan/intent. Continue motivated to go to treatment program and hope he is able to return. However, appears to be negative. Continue encourage fluid and healthy diet. Pending result from [facility] per . 12/11/24: Continue improve in in terms of anxiety. He worries about placement as we have heard from [facility]. He open to get referral to other places aftercare. Denies suicidal thoughts with HI toward the brother at baseline without plan or intent. Denies side effects from medication. Compliant with medications. Skin the face is improving, no active rashes. Observe appropriate, attended groups, no major issues. We will change hydrocortisone to p.r.n. Continue with bed search for treatment program per social media intern. 12/12/24: Patient slept for 8 hours, no issue with appetite. Compliant with medications. He asked questions regarding Zyprexa which he does not know that he has be prescribed. Advised patient not to take it and he does not needed the extra medications. Per record, patient has been given extra medication from p.r.n. list with the scheduled medications which make patient's severe sedated today. Patient was assessed by the hospitalist for possible strokes. However, patient was just overly more sedated than usual. Therefore I make a lot of changes to his PRNs, and lowered down on the methadone down to 130 mg. Nursing make aware that not come by other PRNs and not giving p.r.n. combined with scheduled medications. Hold for sedation. 12/13/24: Patient slept for 3.5 hours last night. Per nursing, patient is calm, less sedated and has no irritable regarding meds changes made yesterday d/t severe sedation. However, patient was not happy with the fact that he cannot take PRN with scheduled and cannot combine PRN together. Patient appears less sedated today. Visible in common areas and attended groups. No major behaviors. CMP to check kidney functions. 12/14/24: Patient slept for 8 hours, less sedated yesterday, was medication compliant. Can be labile, forgetful which is at his baseline. Appears to be sedated this morning, but visible working on activities. He is aware the the fact that he is sedated but do not want to taper down or having medication taken away. He does not remember he expressed on the 1st day that he wants to take lower down his methadone. Patient is aware of labs results to make sure we check the baseline for kidney functions. Continued to encourage fluid. No safety concerns, social appropriate slept with peers and staff. Less irritable, reports anxiety but does not appear to be anxious. He sats that he may not need the walker. Advised patient if when he has not used, return to the nurse for the safety Plan Patient on 5 minute checks for safety. Close off at bedtime-when in bed Admitted to [facility]. CV. Work with treatment team to do collateral and for CSS/CCS if possible for aftercare/[facility]. Refer to patient to agricultural extension specialist. SW refers patient to [facility]. Pending result. Patient educated on: diagnosis, medication risk/benefits, substance abuse and therapeutic strategies Reason for continued inpatient stay Substantial Risk for: med/psych decompensation Time Spent With Patient Time: Total time managing care of this patient today ____ minutes.
[2024-12-15 07:10] VITALS: BP 143/75; PULSE 62; RESP 18; TEMP 36.5; O2SAT 97
[2024-12-15] MEDS: methADONE HCl 20 MG/2 ML ORAL.CONC 130 MG PO (07:53)
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
[2024-12-15] MEDS: Magnesium Hydrox/Alum Hydrox 30 ML ORAL.SUSP PO (19:37)
[2024-12-15 20:00] VITALS: BP 115/58; PULSE 56; RESP 16; TEMP 36.7; O2SAT 98
--- NOTE | 2024-12-15 21:22 | HO.PSYCHPN ---
Subjective Subjective Date of Service: 12/15/24 Reason For Visit: SI and HI Subjective Notes: Conditional Voluntary Healthcare Proxy: No Guardianship: No Medical Problems Affecting Mental Status: No Interim History: Medical record and nursing notes reviewed; case discussed during rounds with team/nursing staff, and met with patient for supportive therapy/psychoeducation, as well as medication management. Patient has been compliant with medications, less sedated, attended to groups most of the day, for fresh air break. Social appropriate with peers and staff, denies suicidal thoughts at this current time. However feeling negative if he does not have beds available. Encourage patient to think positively and lives at the moment and not anticipated something bad not. He would hope to get the bed at [facility] by tomorrow. Medication Compliance: Yes Side effects from medications: No Attending Groups: Yes Review of Systems Acute medical concerns: No Medical Review of Systems: unchanged Review of Systems Review of Systems Denies any shortness of breath, chest pain, dizziness, lightheadedness, abdominal pain or discomfort, nausea vomiting or diarrhea. Mental Status Exam Mental Status Exam Narrative: Patient is alert and oriented; behavior is cooperative,. patient is not in distress; dressed in own casual attire with kempt hair and adequate hygiene;affect congruent; eye contact appropriate; Speech is normal rate, volume and prosody and not pressured; no psychomotor agitation/retardation present; thought process is organized and goal directed; Thought content is WNL, pertinent to relevant topics and without any delusional content, paranoid ideation or grandiosity; no SI/SIB or HI expressed. Denies AVH. Patient's insight and judgment improved. Diagnostics Vital Signs (24Hr): Vital Signs - 24 hr 12/15/24 07:10 Temperature 97.7 F Pulse Rate 62 Respiratory Rate 18 Blood Pressure 143/75 H Pulse Oximetry 97 Oxygen Delivery Method Room Air BMI result Body Mass Index 38.6 Labs 12/12/24 16:33 12/14/24 07:31 Labs: Laboratory Results - last 48 hr 12/14/24 07:31 Sodium 139 Potassium 4.2 Chloride 103 Carbon Dioxide 25 Anion Gap 15 BUN 25 H Creatinine 0.93 Estim Creat Clear Calc 115.9 Estimated GFR > 60 Random Glucose 78 Calcium 9.0 Total Bilirubin 0.3 AST 47 H ALT 43 H Alkaline Phosphatase 78 Total Protein 6.9 Albumin 4.0 Medications Medications Current Medications Acetaminophen (Acetaminophen 325 Mg Tablet) 650 mg PO Q6H PRN PRN Reason: Headache/Pain, Scale 1-10 Last Admin: 12/10/24 12:35 Dose: 650 mg Al Hydroxide/Mg Hydroxide (Magnesium Hydrox/Alum Hydrox 30 Ml Oral.Susp) 30 ml PO Q6H PRN PRN Reason: Heartburn/Nausea Last Admin: 12/15/24 19:37 Dose: 30 ml Atorvastatin Calcium (Atorvastatin Calcium 20 Mg Tablet) 20 mg PO BEDTIME TITI Last Admin: 12/15/24 20:53 Dose: 20 mg Baclofen (Baclofen 10 Mg Tablet) 10 mg PO BEDTIME PRN PRN Reason: Muscle Spasm Last Admin: 12/15/24 20:53 Dose: 10 mg Benzocaine (Benzocaine 20 % Oral Gel 14 Gm Tube) 1 appl MUCOUS MEM QID PRN; Protocol PRN Reason: oral mucosal pain Calcium Carbonate (Calcium Carbonate 750 Mg Tab.Chew) 750 mg PO Q4H PRN PRN Reason: Heartburn Last Admin: 12/13/24 20:32 Dose: 750 mg Clonazepam (Clonazepam 1 Mg Tablet) 1 mg PO BID PRN PRN Reason: Anxiety Last Admin: 12/15/24 20:53 Dose: 1 mg Gabapentin (Gabapentin 300 Mg Capsule) 300 mg PO BID TITI Last Admin: 12/15/24 20:53 Dose: 300 mg Hydrochlorothiazide (Hydrochlorothiazide 25 Mg Tablet) 25 mg PO DAILY TITI; Protocol Hydrocortisone (Hydrocortisone 1 % Ointment 28.35 Gm Tube) 1 appl TOPICAL BID PRN; Protocol PRN Reason: rash Hydroxyzine HCl (Hydroxyzine Hcl 50 Mg Tablet) 50 mg PO Q6H PRN PRN Reason: ANIXETY Last Admin: 12/15/24 17:07 Dose: 50 mg Ibuprofen (Ibuprofen 600 Mg Tablet) 600 mg PO TID PRN PRN Reason: severe foot pain Last Admin: 12/14/24 20:20 Dose: 600 mg Lisinopril (Lisinopril 5 Mg Tablet) 5 mg PO DAILY TITI; Protocol Last Admin: 12/15/24 08:09 Dose: 5 mg Magnesium Hydroxide (Milk Of Magnesia 30 Ml Oral.Susp) 30 ml PO DAILY PRN PRN Reason: Constipation Methadone HCl (Methadone Hcl 20 Mg/2 Ml Oral.Conc) 130 mg PO DAILY TITI Last Admin: 12/15/24 07:53 Dose: 130 mg Nicotine (Nicotine 21 Mg Patch.Td24) 21 mg TRANSDERMA DAILY PRN PRN Reason: nicotine craving Nicotine Polacrilex (Nicotine Polacrilex 2 Mg Gum) 4 mg BUCCAL Q2H PRN PRN Reason: Nicotine Cravings Last Admin: 12/15/24 20:54 Dose: 4 mg Tamsulosin HCl (Tamsulosin Hcl 0.4 Mg Capsule) 0.4 mg PO BEDTIME TITI Last Admin: 12/15/24 20:53 Dose: 0.4 mg Trazodone HCl (Trazodone Hcl 25 Mg Halftab) 25 mg PO BEDTIME PRN PRN Reason: Insomnia Last Admin: 12/14/24 20:35 Dose: 25 mg Allergies Allergies Allergy/AdvReac Type Severity Reaction Status Date / Time No Known Allergies Allergy Verified 12/06/24 11:24 Assessment & Plan Assessment & Plan (1) HTN (hypertension): Status: Acute Code(s): I10 - Essential (primary) hypertension (2) Suicidal ideation: Status: Acute Code(s): R45.851 - Suicidal ideations (3) Depression: Status: Acute Code(s): F32.A - Depression, unspecified (4) Homicidal ideation: Status: Acute Code(s): R45.850 - Homicidal ideations (5) HLD (hyperlipidemia): Status: Acute Code(s): E78.5 - Hyperlipidemia, unspecified (6) BPH (benign prostatic hyperplasia): Status: Acute Code(s): N40.0 - Benign prostatic hyperplasia without lower urinary tract symptoms Plan HPI: Patient is a 49 years old French speaking male with hx of polysubstance use, and depression who arrived to [facility] via ambulance from methadone clinic due to SI and HI. SI with plan to inject litho amounts of cocaine and heroin into his veins. Verbalized to harm his brother by way of weapons I will hurt my brother by tying his wrist to his bed and use weapons on him . Reported that he assisted his brother with rent after he returned home from [facility]. In return his brother began to belittle him and betrated him he told me I am worthless and useless . Also reports that he overdose on drugs a week ago. Relapsed after being 1.5 months sober cocaine is my drug of choice . Formulation/clinical reasoning: Increase in in depression, anxiety, SI/HI with plan to kill himself and killing his brother. Relapsed on substance after 1.5 months sobriety. History of polysubstance use disorder, depression. Given the above information, he would be benefit in restrictive environment for his own safety and safety of others, medication adjustment, refer/patient to [facility] for aftercare. He good like to meet with addiction team taper down on methadone. Hospital course: 12/08/24: Continue with home medication include methadone 140mg daily. Patient on 5 minute checks for high, fall risk and using the walker. Okay to use own foot brace with work boots to support ambulation and balance. 12/09/24: Patient slept good, no issue with appetite. Compliant with medication. He said I do not understand but I am still out of it today . He further explained that he may not taking medication for couple of days and restart since he got here which make him sedated. Denies SI reports HI but improve with no plan or intention to do harm to his brother. Denies hallucinations. He ambulate using the walker, have the work boots on. Remain on 5 minute checks and at night will be on close as he can not return to shoes. Needed to use ambulate when during the night. He met with hospitalist regarding elevated on lipid profile, and BUN. The hospitalist started him on medication for medical conditions. Continue to educate patient on healthy diet and portion size. The addiction team also going to see him today as well. However they will not taking care of able to taper down on methadone. The patient need to address with the outpatient clinic. Patient would like to return to [facility]. squirrel worker is working referral patient back to the program. He attended groups, social, appropriate. No behavior issues. Atorvastatin 20 mg at bedtime Hydrochlorothiazide 12.5 daily for HTN Motrin 600 t.i.d. for pain/information Lisinopril 5 mg daily for hypertension. Hospitalist reviewed the lipid/lab results with patient/BUN elevated. Encourage fluids. 12/10/24: Patient slept well, no issues with appetite. Compliant with meds. Denies side effects, appear slightly sedated. Tolerate well with new meds started yesterday. Was irritable toward the fact that this provider discontinued his PRN 50mg Vistaril and discontinue Nicotine gum 4mg PRN ordered. Denies SI/SIB/AVH. Report HI toward his brother will not go away but denies plan/intent. Continue motivated to go to treatment program and hope he is able to return. However, appears to be negative. Continue encourage fluid and healthy diet. Pending result from [facility] per SW. 12/11/24: Continue improve in in terms of anxiety. He worries about placement as we have heard from [facility]. He open to get referral to other places aftercare. Denies suicidal thoughts with HI toward the brother at baseline without plan or intent. Denies side effects from medication. Compliant with medications. Skin the face is improving, no active rashes. Observe appropriate, attended groups, no major issues. We will change hydrocortisone to p.r.n. Continue with bed search for treatment program per social human services assistants. 12/12/24: Patient slept for 8 hours, no issue with appetite. Compliant with medications. He asked questions regarding Zyprexa which he does not know that he has be prescribed. Advised patient not to take it and he does not needed the extra medications. Per record, patient has been given extra medication from p.r.n. list with the scheduled medications which make patient's severe sedated today. Patient was assessed by the hospitalist for possible strokes. However, patient was just overly more sedated than usual. Therefore I make a lot of changes to his PRNs, and lowered down on the methadone down to 130 mg. Nursing make aware that not come by other PRNs and not giving p.r.n. combined with scheduled medications. Hold for sedation. 12/13/24: Patient slept for 3.5 hours last night. Per nursing, patient is calm, less sedated and has no irritable regarding meds changes made yesterday d/t severe sedation. However, patient was not happy with the fact that he cannot take PRN with scheduled and cannot combine PRN together. Patient appears less sedated today. Visible in common areas and attended groups. No major behaviors. CMP to check kidney functions. 12/14/24: Patient slept for 8 hours, less sedated yesterday, was medication compliant. Can be labile, forgetful which is at his baseline. Appears to be sedated this morning, but visible working on activities. He is aware the the fact that he is sedated but do not want to taper down or having medication taken away. He does not remember he expressed on the 1st day that he wants to take lower down his methadone. Patient is aware of labs results to make sure we check the baseline for kidney functions. Continued to encourage fluid. No safety concerns, social appropriate slept with peers and staff. Less irritable, reports anxiety but does not appear to be anxious. He sats that he may not need the walker. Advised patient if when he has not used, return to the nurse for the safety. 12/15/24: Patient has been compliant with medications, less sedated, attended to groups most of the day, for fresh air break. Social appropriate with peers and staff, denies suicidal thoughts at this current time. However feeling negative if he does not have beds available. Encourage patient to think positively and lives at the moment and not anticipated something bad not. He would hope to get the bed at [facility] by tomorrow. Per hospitalist note: Hypertension/hyperlipidemia Patient's blood pressures occasionally elevated, continues with bilateral lower extremity edema Started atorvastatin, follow up labs in 6 weeks to check LFT's and Lipid panel. We will start moderate intensity statin, DC torsemide, Continue lisinopril and increase hydrochlorothiazide to 25 mgs daily for blood pressure management Follow up labs on Sunday Compression stockings Dysuria Patient reports increased urinary frequency at night, difficulty starting his stream, and abnormal urine stream improving Continue Flomax 0.4 mg at h.s., patient will need outpatient urology follow up. Impaired mobility/neuropathy/footdrop Wears AFO brace, we will need outpatient follow up for new brace Continue baclofen at HS, Motrin as needed. Plan Patient on 5 minute checks for safety. Close off at bedtime-when in bed Admitted to [facility]. CV. Work with treatment team to do collateral and for CSS/CCS if possible for aftercare/[facility]. Refer to patient to animal control specialist. SW refers patient to [facility]. Pending result: Patient may have a bed and [facility] by tomorrow. Patient educated on: diagnosis, medication risk/benefits, substance abuse and therapeutic strategies Informed Consent: understands Reason for continued inpatient stay Substantial Risk for: med/psych decompensation Time Spent With Patient Time: Total time managing care of this patient today ____ minutes.
[2024-12-15] MEDS: traZODone HCL 25 MG HALFTAB PO (22:45)
[2024-12-15] MEDS: Benzocaine 20 % Oral Gel 9 GM TUBE 1 APPL MUCOUS MEM (22:47)
[2024-12-16] MEDS: methADONE HCl 20 MG/2 ML ORAL.CONC 130 MG PO (08:08)
[2024-12-16 08:33] VITALS: BP 119/56; PULSE 60; RESP 16; TEMP 36.3; O2SAT 95
--- NOTE | 2024-12-16 13:11 | P.PNPSI_ITS ---
Subjective Subjective Date of Service: 12/16/24 Reason For Visit: SI and HI Subjective Notes: Conditional Voluntary Healthcare Proxy: No Guardianship: No Medical Problems Affecting Mental Status: No Interim History: Medical record and nursing notes reviewed; case discussed during rounds with team/nursing staff, and met with patient for supportive therapy/psychoeducation, as well as medication management. Continue doing well, no behavior issues, he is grateful that he is adopted at [facility] tomorrow. He appreciate the work that the team has been provided. Patient observed visible, social, inappropriate, attended groups. Denies safety concerns. Denies any hallucinations. We will work on sending medication to preferred pharmacy to prepare for tomorrow discharge. Medication Compliance: Yes Side effects from medications: No Attending Groups: Yes Review of Systems Acute medical concerns: No Medical Review of Systems: unchanged Review of Systems Review of Systems Denies any shortness of breath, chest pain, dizziness, lightheadedness, abdominal pain or discomfort, nausea vomiting or diarrhea. Yes all other systems are reviewed and are negative Mental Status Exam Mental Status Exam Narrative: Patient is alert and oriented; behavior is cooperative,. patient is not in distress; dressed in own casual attire with kempt hair and adequate hygiene;affect congruent; eye contact appropriate; Speech is normal rate, volume and prosody and not pressured; no psychomotor agitation/retardation present; thought process is organized and goal directed; Thought content is WNL, pertinent to relevant topics and without any delusional content, paranoid ideation or grandiosity; no SI/SIB or HI expressed. Denies AVH. Patient's insight and judgment good. Diagnostics Vital Signs (24Hr): Vital Signs - 24 hr 12/15/24 20:00 12/16/24 08:33 Temperature 98.0 F 97.4 F Pulse Rate 56 60 Respiratory Rate 16 16 Blood Pressure 115/58 L 119/56 L Pulse Oximetry 98 95 Oxygen Delivery Method Room Air Room Air BMI result Body Mass Index 38.6 Labs 12/12/24 16:33 12/14/24 07:31 Medications Medications Current Medications Acetaminophen (Acetaminophen 325 Mg Tablet) 650 mg PO Q6H PRN PRN Reason: Headache/Pain, Scale 1-10 Last Admin: 12/10/24 12:35 Dose: 650 mg Al Hydroxide/Mg Hydroxide (Magnesium Hydrox/Alum Hydrox 30 Ml Oral.Susp) 30 ml PO Q6H PRN PRN Reason: Heartburn/Nausea Last Admin: 12/15/24 19:37 Dose: 30 ml Atorvastatin Calcium (Atorvastatin Calcium 20 Mg Tablet) 20 mg PO BEDTIME TITI Last Admin: 12/15/24 20:53 Dose: 20 mg Baclofen (Baclofen 10 Mg Tablet) 10 mg PO BEDTIME PRN PRN Reason: Muscle Spasm Last Admin: 12/15/24 20:53 Dose: 10 mg Benzocaine (Benzocaine 20 % Oral Gel 9 Gm Tube) 1 appl MUCOUS MEM QID PRN; Protocol PRN Reason: oral mucosal pain Last Admin: 12/15/24 22:47 Dose: 1 appl Calcium Carbonate (Calcium Carbonate 750 Mg Tab.Chew) 750 mg PO Q4H PRN PRN Reason: Heartburn Last Admin: 12/13/24 20:32 Dose: 750 mg Clonazepam (Clonazepam 1 Mg Tablet) 1 mg PO BID PRN PRN Reason: Anxiety Last Admin: 12/16/24 11:25 Dose: 1 mg Gabapentin (Gabapentin 300 Mg Capsule) 300 mg PO BID TITI Last Admin: 12/16/24 08:39 Dose: 300 mg Hydrochlorothiazide (Hydrochlorothiazide 25 Mg Tablet) 25 mg PO DAILY TITI; Protocol Last Admin: 12/16/24 08:38 Dose: 25 mg Hydrocortisone (Hydrocortisone 1 % Ointment 28.35 Gm Tube) 1 appl TOPICAL BID PRN; Protocol PRN Reason: rash Hydroxyzine HCl (Hydroxyzine Hcl 50 Mg Tablet) 50 mg PO Q6H PRN PRN Reason: ANIXETY Last Admin: 12/16/24 06:23 Dose: 50 mg Ibuprofen (Ibuprofen 600 Mg Tablet) 600 mg PO TID PRN PRN Reason: severe foot pain Last Admin: 12/14/24 20:20 Dose: 600 mg Lisinopril (Lisinopril 5 Mg Tablet) 5 mg PO DAILY TITI; Protocol Last Admin: 12/16/24 08:38 Dose: 5 mg Magnesium Hydroxide (Milk Of Magnesia 30 Ml Oral.Susp) 30 ml PO DAILY PRN PRN Reason: Constipation Methadone HCl (Methadone Hcl 20 Mg/2 Ml Oral.Conc) 130 mg PO DAILY TITI Last Admin: 12/16/24 08:08 Dose: 130 mg Nicotine (Nicotine 21 Mg Patch.Td24) 21 mg TRANSDERMA DAILY PRN PRN Reason: nicotine craving Nicotine Polacrilex (Nicotine Polacrilex 2 Mg Gum) 4 mg BUCCAL Q2H PRN PRN Reason: Nicotine Cravings Last Admin: 12/16/24 11:25 Dose: 4 mg Tamsulosin HCl (Tamsulosin Hcl 0.4 Mg Capsule) 0.4 mg PO BEDTIME TITI Last Admin: 12/15/24 20:53 Dose: 0.4 mg Trazodone HCl (Trazodone Hcl 25 Mg Halftab) 25 mg PO BEDTIME PRN PRN Reason: Insomnia Last Admin: 12/15/24 22:45 Dose: 25 mg Allergies Allergies Allergy/AdvReac Type Severity Reaction Status Date / Time No Known Allergies Allergy Verified 12/06/24 11:24 Assessment & Plan Assessment & Plan (1) HTN (hypertension): Status: Acute Code(s): I10 - Essential (primary) hypertension (2) Suicidal ideation: Status: Acute Code(s): R45.851 - Suicidal ideations (3) Depression: Status: Acute Code(s): F32.A - Depression, unspecified (4) Homicidal ideation: Status: Acute Code(s): R45.850 - Homicidal ideations (5) HLD (hyperlipidemia): Status: Acute Code(s): E78.5 - Hyperlipidemia, unspecified (6) BPH (benign prostatic hyperplasia): Status: Acute Code(s): N40.0 - Benign prostatic hyperplasia without lower urinary tract symptoms Plan HPI: Patient is a 49 years old Icelandic speaking male with hx of polysubstance use, and depression who arrived to [facility] via ambulance from methadone clinic due to SI and HI. SI with plan to inject litho amounts of cocaine and heroin into his veins. Verbalized to harm his brother by way of weapons I will hurt my brother by tying his wrist to his bed and use weapons on him . Reported that he assisted his brother with rent after he returned home from [facility]. In return his brother began to belittle him and betrated him he told me I am worthless and useless . Also reports that he overdose on drugs a week ago. Relapsed after being 1.5 months sober cocaine is my drug of choice . Formulation/clinical reasoning: Increase in in depression, anxiety, SI/HI with plan to kill himself and killing his brother. Relapsed on substance after 1.5 months sobriety. History of polysubstance use disorder, depression. Given the above information, he would be benefit in restrictive environment for his own safety and safety of others, medication adjustment, refer/patient to [facility] for aftercare. He good like to meet with addiction team taper down on methadone. Hospital course: 12/08/24: Continue with home medication include methadone 140mg daily. Patient on 5 minute checks for high, fall risk and using the walker. Okay to use own foot brace with work boots to support ambulation and balance. 12/09/24: Patient slept good, no issue with appetite. Compliant with medication. He said I do not understand but I am still out of it today . He further explained that he may not taking medication for couple of days and restart since he got here which make him sedated. Denies SI reports HI but improve with no plan or intention to do harm to his brother. Denies hallucinations. He ambulate using the walker, have the work boots on. Remain on 5 minute checks and at night will be on close as he can not return to shoes. Needed to use ambulate when during the night. He met with hospitalist regarding elevated on lipid profile, and BUN. The hospitalist started him on medication for medical conditions. Continue to educate patient on healthy diet and portion size. The addiction team also going to see him today as well. However they will not taking care of able to taper down on methadone. The patient need to address with the outpatient clinic. Patient would like to return [facility]. 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 He attended groups, social, appropriate. No behavior issues. Atorvastatin 20 mg at bedtime Hydrochlorothiazide 12.5 daily for HTN Motrin 600 t.i.d. for pain/information Lisinopril 5 mg daily for hypertension. Hospitalist reviewed the lipid/lab results with patient/BUN elevated. Encourage fluids. 12/10/24: Patient slept well, no issues with appetite. Compliant with meds. Denies side effects, appear slightly sedated. Tolerate well with new meds started yesterday. Was irritable toward the fact that this provider discontinued his PRN 50mg Vistaril and discontinue Nicotine gum 4mg PRN ordered. Denies SI/SIB/AVH. Report HI toward his brother will not go away but denies plan/intent. Continue motivated to go to treatment program and hope he is able to return. However, appears to be negative. Continue encourage fluid and healthy diet. Pending result from [facility] per SW. 12/11/24: Continue improve in in terms of anxiety. He worries about placement as we have heard from [facility]. He open to get referral to other places aftercare. Denies suicidal thoughts with HI toward the brother at baseline without plan or intent. Denies side effects from medication. Compliant with medications. Skin the face is improving, no active rashes. Observe appropriate, attended groups, no major issues. We will change hydrocortisone to p.r.n. Continue with bed search for treatment program per social and political studies professor. 12/12/24: Patient slept for 8 hours, no issue with appetite. Compliant with medications. He asked questions regarding Zyprexa which he does not know that he has be prescribed. Advised patient not to take it and he does not needed the extra medications. Per record, patient has been given extra medication from p.r.n. list with the scheduled medications which make patient's severe sedated today. Patient was assessed by the hospitalist for possible strokes. However, patient was just overly more sedated than usual. Therefore I make a lot of changes to his PRNs, and lowered down on the methadone down to 130 mg. Nursing make aware that not come by other PRNs and not giving p.r.n. combined with scheduled medications. Hold for sedation. 12/13/24: Patient slept for 3.5 hours last night. Per nursing, patient is calm, less sedated and has no irritable regarding meds changes made yesterday d/t severe sedation. However, patient was not happy with the fact that he cannot take PRN with scheduled and cannot combine PRN together. Patient appears less sedated today. Visible in common areas and attended groups. No major behaviors. CMP to check kidney functions. 12/14/24: Patient slept for 8 hours, less sedated yesterday, was medication compliant. Can be labile, forgetful which is at his baseline. Appears to be sedated this morning, but visible working on activities. He is aware the the fact that he is sedated but do not want to taper down or having medication taken away. He does not remember he expressed on the 1st day that he wants to take lower down his methadone. Patient is aware of labs results to make sure we check the baseline for kidney functions. Continued to encourage fluid. No safety concerns, social appropriate slept with peers and staff. Less irritable, reports anxiety but does not appear to be anxious. He sats that he may not need the walker. Advised patient if when he has not used, return to the nurse for the safety. 12/15/24: Patient has been compliant with medications, less sedated, attended to groups most of the day, for fresh air break. Social appropriate with peers and staff, denies suicidal thoughts at this current time. However feeling negative if he does not have beds available. Encourage patient to think positively and lives at the moment and not anticipated something bad not. He would hope to get the bed at [facility] by tomorrow. Per hospitalist note: Hypertension/hyperlipidemia Patient's blood pressures occasionally elevated, continues with bilateral lower extremity edema Started atorvastatin, follow up labs in 6 weeks to check LFT's and Lipid panel. We will start moderate intensity statin, DC torsemide, Continue lisinopril and increase hydrochlorothiazide to 25 mgs daily for blood pressure management Follow up labs on Sunday Compression stockings Dysuria Patient reports increased urinary frequency at night, difficulty starting his stream, and abnormal urine stream improving Continue Flomax 0.4 mg at h.s., patient will need outpatient urology follow up. Impaired mobility/neuropathy/footdrop Wears AFO brace, we will need outpatient follow up for new brace Continue baclofen at HS, Motrin as needed. 12/16/24: Continue doing well, no behavior issues, he is grateful that he is adopted at [facility] tomorrow. He appreciate the work that the team has been provided. Patient observed visible, social, inappropriate, attended groups. Denies safety concerns. Denies any hallucinations. We will work on sending medication to preferred pharmacy to prepare for tomorrow discharge. Plan Patient on 5 minute checks for safety. Close obs at bedtime-when in bed Admitted to . [facility]. Work with treatment team to do collateral. Patient is referred to [facility]. Refer to patient to grounds/maintenance specialist. SW refers patient to [facility]: Patient is accepted at [facility]. Will be discharged tomorrow. Patient educated on: diagnosis, medication risk/benefits, substance abuse and therapeutic strategies Informed Consent: understands Reason for continued inpatient stay Substantial Risk for: med/psych decompensation Time Spent With Patient Time: Total time managing care of this patient today ____ minutes.
[2024-12-16] MEDS: Magnesium Hydrox/Alum Hydrox 30 ML ORAL.SUSP PO (18:09)
[2024-12-16 19:50] VITALS: BP 123/59; PULSE 54; RESP 18; TEMP 36.9; O2SAT 95
[2024-12-16] MEDS: traZODone HCL 25 MG HALFTAB PO (22:58)
[2024-12-17 07:31] VITALS: BP 140/71; PULSE 70; RESP 18; TEMP 36.4; O2SAT 98
[2024-12-17] MEDS: methADONE HCl 20 MG/2 ML ORAL.CONC 130 MG PO (07:32)
--- NOTE | 2024-12-17 09:14 | P.DS_ITS ---
DS: Providers Provider Date of Service: 12/17/24 Date of admission: 12/08/24 11:59 Date of discharge: 12/17/24 Primary care physician: Jean Pierre Gibbons MD Attending physician on admission: Maeve Jackman Consults: 12/08/24 14:29 Addiction Medicine Provider Routine Consulting Provider: Addiction Covering Reason for consultation: recent relapse/methadone maintenance 12/08/24 21:22 Addiction Medicine Provider Routine Consulting Provider: Addiction Covering Reason for consultation: Want taper down on MTD Has provider been notified: No 12/09/24 10:12 Consult to Hospitalist Routine Comment: Consulting Provider: [facility] Hospitalists Reason For Exam: Elevated Lipid profile Attending physician on discharge: Maeve Jackman DS: Diagnosis Discharge Diagnosis (1) HTN (hypertension): Status: Acute (2) Suicidal ideation: Status: Acute (3) Depression: Status: Acute (4) Homicidal ideation: Status: Acute (5) HLD (hyperlipidemia): Status: Acute (6) BPH (benign prostatic hyperplasia): Status: Acute DS: Medications Discharge Medications Home Medications: Previous Rx's ?Medication ?Instructions ?Recorded atorvastatin 20 mg tablet 20 mg PO BEDTIME HLD #30 tab s 12/16/24 baclofen 10 mg tablet 10 mg PO BEDTIME PRN muscle spasm 12/16/24 #30 tabs clonazepam 1 mg tablet 1 mg PO BID PRN Anxiety #60 tabs 12/16/24 gabapentin 300 mg capsule 300 mg PO BID Nerve pain #6 0 caps 12/16/24 hydrochlorothiazide 25 mg tablet 25 mg PO DAILY HTN #3 0 tabs 12/16/24 hydroxyzine pamoate 50 mg capsule 50 mg PO Q6H PRN Mil d Anxiety #90 12/16/24 caps ibuprofen 800 mg tablet 800 mg PO TID PRN Leg pain # 90 tabs 12/16/24 lisinopril 5 mg tablet 5 mg PO DAILY HTN #30 tabs 0 12/16/24 methadone 10 mg/mL oral 130 mg (13 mL) PO DAILY MAT 30 12/16/24 concentrate (Methadose) days #130 mL nicotine (polacrilex) 2 mg gum 4 mg buccal Q2H PRN Matty otine 12/16/24 Cravings #100 ea tamsulosin 0.4 mg capsule 0.4 mg PO BEDTIME BPH #30 ca ps 12/16/24 Mental Status Exam Mental Status Exam Narrative: Patient presents well-groomed, casually dressed. Affect is euthymic with full range. Speech is clear and coherent. Thought process is linear and logical. Thought content is appropriate and relevant. Patient denies suicidal or homicidal ideation intent or plan. No overt psychotic symptoms elicited. Insight is good. Judgment is good. Data Data Completed and Pending Completed studies during hospitalization [Text1]: 12/12/24 12/14/24 16:33 07:31 WBC 6.7 RBC 4.25 L Hgb 12.0 L Hct 36.3 L MCV 85.4 MCH 28.2 MCHC 33.1 RDW 13.2 Plt Count 228 MPV 9.1 L Immature Gran % (Auto) 0.6 H Neut % (Auto) 70.6 Lymph % (Auto) 18.6 L [place] % (Auto) 8.2 Eos % (Auto) 1.6 Baso % (Auto) 0.4 Lymph # (Auto) 1.3 [place] # (Auto) 0.6 Eos # (Auto) 0.1 Baso # (Auto) 0.0 Abs Immat Gran (auto) 0.04 H Absolute Neuts (auto) 4.7 Absolute Nucleated RBC 0.000 Nucleated RBC % (auto) 0.0 Sodium 140 139 Potassium 4.4 4.2 Chloride 104 103 Carbon Dioxide 27 25 Anion Gap 13 15 BUN 25 H 25 H Creatinine 1.16 0.93 Estim Creat Clear Calc 92.9 115.9 Estimated GFR > 60 > 60 Random Glucose 103 78 Calcium 9.4 9.0 Total Bilirubin 0.3 AST 47 H ALT 43 H Alkaline Phosphatase 78 Total Protein 6.9 Albumin 4.0 DS: Summary Hospital Course Hospital Course: HPI: Patient is a 49 years old Congolese speaking male with hx of polysubstance use, and depression who arrived to [facility] via ambulance from methadone clinic due to SI and HI. SI with plan to inject litho amounts of cocaine and heroin into his veins. Verbalized to harm his brother by way of weapons I will hurt my brother by tying his wrist to his bed and use weapons on him . Reported that he assisted his brother with rent after he returned home from [facility]. In return his brother began to belittle him and betrayed him he told me I am worthless and useless . Also reports that he overdose on drugs a week ago. Relapsed after being 1.5 months sober cocaine is my drug of choice . Formulation/clinical reasoning: Increase in in depression, anxiety, SI/HI with plan to kill himself and killing his brother. Relapsed on substance after 1.5 months sobriety. History of polysubstance use disorder, depression. Given the above information, he would be benefit in restrictive environment for his own safety and safety of others, medication adjustment, refer/patient to [facility] for aftercare. He good like to meet with addiction team taper down on methadone. Hospital course: 12/08/24: Continue with home medication include methadone 140mg daily. Patient on 5 minute checks for high, fall risk and using the walker. Okay to use own foot brace with work boots to support ambulation and balance. 12/09/24: Patient slept good, no issue with appetite. Compliant with medication. He said I do not understand but I am still out of it today . He further explained that he may not taking medication for couple of days and restart since he got here which make him sedated. Denies SI reports HI but improve with no plan or intention to do harm to his brother. Denies hallucinations. He ambulate using the walker, have the work boots on. Remain on 5 minute checks and at night will be on close as he can not return to shoes. Needed to use ambulate when during the night. He met with hospitalist regarding elevated on lipid profile, and BUN. The hospitalist started him on medication for medical conditions. Continue to educate patient on healthy diet and portion size. The addiction team also going to see him today as well. However they will not taking care of able to taper down on methadone. The patient need to address with the outpatient clinic. Patient would like to return to [facility]. milk house worker is working referral patient back to the program. He attended groups, social, appropriate. No behavior issues. Atorvastatin 20 mg at bedtime Hydrochlorothiazide 12.5 daily for HTN Motrin 600 t.i.d. for pain/information Lisinopril 5 mg daily for hypertension. Hospitalist reviewed the lipid/lab results with patient/BUN elevated. Encourage fluids. 12/10/24: Patient slept well, no issues with appetite. Compliant with meds. Denies side effects, appear slightly sedated. Tolerate well with new meds started yesterday. Was irritable toward the fact that this provider discontinued his PRN 50mg Vistaril and discontinue Nicotine gum 4mg PRN ordered. Denies SI/SIB/AVH. Report HI toward his brother will not go away but denies plan/intent. Continue motivated to go to treatment program and hope he is able to return. However, appears to be negative. Continue encourage fluid and healthy diet. Pending result from [facility] per SW. 12/11/24: Continue improve in in terms of anxiety. He worries about placement as we have heard from [facility]. He open to get referral to other places aftercare. Denies suicidal thoughts with HI toward the brother at baseline without plan or intent. Denies side effects from medication. Compliant with medications. Skin the face is improving, no active rashes. Observe appropriate, attended groups, no major issues. We will change hydrocortisone to p.r.n. Continue with bed search for treatment program per social science professor. 12/12/24: Patient slept for 8 hours, no issue with appetite. Compliant with medications. He asked questions regarding Zyprexa which he does not know that he has be prescribed. Advised patient not to take it and he does not needed the extra medications. Per record, patient has been given extra medication from p.r.n. list with the scheduled medications which make patient's severe sedated today. Patient was assessed by the hospitalist for possible strokes. However, patient was just overly more sedated than usual. Therefore I make a lot of changes to his PRNs, and lowered down on the methadone down to 130 mg. Nursing make aware that not come by other PRNs and not giving p.r.n. combined with scheduled medications. Hold for sedation. 12/13/24: Patient slept for 3.5 hours last night. Per nursing, patient is calm, less sedated and has no irritable regarding meds changes made yesterday d/t severe sedation. However, patient was not happy with the fact that he cannot take PRN with scheduled and cannot combine PRN together. Patient appears less sedated today. Visible in common areas and attended groups. No major behaviors. CMP to check kidney functions. 12/14/24: Patient slept for 8 hours, less sedated yesterday, was medication compliant. Can be labile, forgetful which is at his baseline. Appears to be sedated this morning, but visible working on activities. He is aware the the fact that he is sedated but do not want to taper down or having medication taken away. He does not remember he expressed on the 1st day that he wants to take lower down his methadone. Patient is aware of labs results to make sure we check the baseline for kidney functions. Continued to encourage fluid. No safety concerns, social appropriate slept with peers and staff. Less irritable, reports anxiety but does not appear to be anxious. He sats that he may not need the walker. Advised patient if when he has not used, return to the nurse for the safety. 12/15/24: Patient has been compliant with medications, less sedated, attended to groups most of the day, for fresh air break. Social appropriate with peers and staff, denies suicidal thoughts at this current time. However feeling negative if he does not have beds available. Encourage patient to think positively and lives at the moment and not anticipated something bad not. He would hope to get the bed at [facility] by tomorrow. Per hospitalist note: Hypertension/hyperlipidemia Patient's blood pressures occasionally elevated, continues with bilateral lower extremity edema Started atorvastatin, follow up labs in 6 weeks to check LFT's and Lipid panel. We will start moderate intensity statin, DC torsemide, Continue lisinopril and increase hydrochlorothiazide to 25 mgs daily for blood pressure management Follow up labs on Sunday Compression stockings Dysuria Patient reports increased urinary frequency at night, difficulty starting his stream, and abnormal urine stream improving Continue Flomax 0.4 mg at h.s., patient will need outpatient urology follow up. Impaired mobility/neuropathy/footdrop Wears AFO brace, we will need outpatient follow up for new brace Continue baclofen at HS, Motrin as needed. 12/16/24: Continue doing well, no behavior issues, he is grateful that he is adopted at [facility] tomorrow. He appreciate the work that the team has been provided. Patient observed visible, social, inappropriate, attended groups. Denies safety concerns. Denies any hallucinations. We will work on sending medication to preferred pharmacy to prepare for tomorrow discharge. Plan Patient on 5 minute checks for safety. Close obs at bedtime-when in bed Admitted to . CV. Work with treatment team to do collateral. Patient is referred to [facility]. Refer to patient to certified substance abuse counselor. SW refers patient to [facility]: Patient is accepted at [facility]. Will be discharged tomorrow. Time spent discussing smoking cessation with patient: 3 to 10 minutes Status at Discharge Cognitive/behavioral status at discharge: CONDITION ON DISCHARGE: CURRENT STATUS IT RELATES TO ADMISSION CRITERIA: Stable, improved. Improvements in depression, anxiety, and suicidal ideation. Improvements in sleep, energy, and appetite. and no hallucination or paranoia/delusional thought. Functional status at discharge: uses cane/walker Overall status at discharge: patient is back to baseline Time Spent with Patient Time attestation: Total time managing care of this patient today ____ minutes. Time spent: Greater than 30 minutes Discharge Plan Discharge Anticipated Discharge Date/Time: 12/17/24 10:00 Patient Disposition: Xfer Inpatient Rehab Fac Discharge Diagnosis: HTN, BPH, HLD, Depression Referrals: Iraj: Recovery Coaching [Other] - 1 Week Referral Note: Referral has been sent for recovery coaching. Please call upon discharge to follow-up CHD: Alfred [Other] - 1 Week Referral Note: A referral has been sent on your behalf. Please call or walk- in to follow-up on referral Jean Pierre Gibbons MD [Primary Care Provider, Internal Medicine] - 12/19/24 11:00 am Referral Note: Discharge Medications: New nicotine (polacrilex) 2 mg Gum 4 mg buccal Q2H PRN (Reason: Nicotine Cravings) Qty: 100 0RF tamsulosin 0.4 mg Capsule 0.4 mg PO BEDTIME Qty: 30 0RF atorvastatin 20 mg Tablet 20 mg PO BEDTIME Qty: 30 0RF lisinopril 5 mg Tablet 5 mg PO DAILY Qty: 30 0RF Protocol: Hold for SBP< HOLD for SBP < : 90 methadone [Methadose] 10 mg/mL Concentrate 130 mg PO DAILY 30 Days Qty: 130 0RF Rx Instructions: Partial Fill upon patient request. hydrochlorothiazide 25 mg Tablet 25 mg PO DAILY Qty: 30 0RF Protocol: Hold for SBP< HOLD for SBP < : 90 Continued clonazepam 1 mg tablet 1 mg PO BID PRN (Reason: Anxiety) Qty: 60 0RF gabapentin 300 mg capsule 300 mg PO BID Qty: 60 0RF Changed ibuprofen 800 mg tablet 800 mg PO TID PRN (Reason: Leg pain) Qty: 90 0RF hydroxyzine pamoate 50 mg capsule 50 mg PO Q6H PRN (Reason: Mild Anxiety) Qty: 90 0RF Rx Instructions: NTE 3 doses/daily baclofen 10 mg tablet 10 mg PO BEDTIME PRN (Reason: muscle spasm) Qty: 30 0RF Discontinued torsemide 20 mg tablet 20 mg PO DAILY methadone [Methadone Intensol] 10 mg/mL Concentrate 140 mg PO DAILY Discharge Orders: Discharge Order (Routine); Ordered 12/17/24 Ordered By: Yin Valentine Diet: Regular diet Activity on Discharge: Use cane or walker Stand Alone Forms: Patient Portal Discharge page, Community Support Print Language: Congolese Care Plan Goals: Maintain mood and safe behaviors Take medications as prescribed Continue to pursue sobriety Practice coping skills Continue with outpatient providers and reach out to them as needed Health Concerns: Mood stability and behaviors Sobriety Plan of Treatment: Follow up with your PCP, psychiatric provider and other outpatient providers regarding above concerns Take medications as prescribed Assessment: Assessment: Risk assessment at time of discharge: Patient was interviewed prior to discharge and found to be fully oriented and without any SI or HI. Patient has improved insight and judgment and wants to continue treatment. Patient is not in imminent risk of harm to self or others and has a safety plan that includes presenting to the closest ER or calling 911 if feeling unsafe. Patient has been observed closely by nursing and unit staff throughout admission; patient has not engaged in any behaviors that suggest dangerousness to self or others and has demonstrated appropriate behaviors and impulse control
--- OUTSIDE RECORDS SUMMARY | 2024-12-24 14:11 | XMS_ITS | Encounter Summary ---
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 Social History Tobacco Use [...] LDL Routine 11/06/2024 7:00 AM EDT Other fci (current) drug therapy HEMOGLOBIN A1C Routine 11/06/2024 7:00 AM EDT Other fci (current) drug therapy COMPREHENSIVE METABOLIC PANEL Routine 11/06/2024 7:00 AM EDT Other fci (current) drug therapy documented in this encounter Results * (ABNORMAL) Lipid panel with reflex to direct LDL (11/06/2024 7:00 AM EDT) Cholesterol 297(H) 0 - 200 mg/dL LAB CHEMISTRY METHOD 11/06/2024 11:09 AM EDT [facility] Triglycerides 449(H) 0 - 150 mg/dL LAB CHEMISTRY METHOD 11/06/2024 11:09 AM EDT [facility] HDL 39(L) >=40 mg/dL LAB CHEMISTRY METHOD 11/06/2024 11:09 AM [facility] LDL Calculated 168(H) 0 - 100 mg/dL LAB CHEMISTRY METHOD 11/06/2024 11:09 AM T [facility] Comment: Unable to calculate when triglycerides >400 mg/dL. Estimated LDL Calculated using equation: Total cholesterol - HDL cholesterol - (Triglycerides/5) VLDL Cholesterol Sadi 89.8 mg/dL LAB CHEMISTRY METHOD 11/06/2024 11:09 AM EDT [facility] Comment:Unable to calculate when triglycerides >400 mg/dL. Non HDL Chol. (LDL+VLDL) 258(H) <145 mg/dL LAB CHEMISTRY METHOD 11/06/2024 11:09 AM T [facility] Comment:Unable to calculate when triglycerides >400 mg/dL. Chol/HDL Ratio 7.6(H) 0.0 - 4.4 LAB CHEMISTRY METHOD 11/06/2024 11:09 AM [facility] Blood Venous blood specimen / Unknown Venipuncture / Unknown 11/06/2024 7:00 AM EDT 11/06/2024 10:06 AM EDT Remy Jerez TAIL [facility]ER LAB BLOOD ORDERABLES Final Resu lt [facility] [address] [place] [address], * (ABNORMAL) Comprehensive metabolic panel (11/06/2024 7:00 AM EDT) Sodium 140 133 - 145 mmol/L LAB CHEMISTRY METHOD 11/06/2024 11:08 AM EDT [facility] Potassium 4.0 3.5 - 5.5 mmol/L LAB CHEMISTRY METHOD 11/06/2024 11:08 AM [facility] Chloride 109 96 - 110 mmol/L LAB CHEMISTRY METHOD 11/06/2024 11:08 AM [facility] CO2 25 21 - 32 mmol/L LAB CHEMISTRY METHOD 11/06/2024 11:08 AM [facility] Anion Gap 6 3 - 11 LAB CHEMISTRY METHOD 11/06/2024 11:08 AM [facility] Glucose 105(H) 70 - 100 mg/dL LAB CHEMISTRY METHOD 11/06/2024 11:08 AM [facility] BUN 17 5 - 25 mg/dL LAB CHEMISTRY METHOD 11/06/2024 11:08 AM [facility] Creatinine 0.80 0.70 - 1.30 mg/dL LAB CHEMISTRY METHOD 11/06/2024 11:08 AM [facility] eGFR 109 >=60 mL/min/1. 73m2 LAB CHEMISTRY METHOD 11/06/2024 11:08 AM [facility] Comment:Calculation based on the Chronic Kidney Disease Epidemiology Collaboration (CKD-EPI) equation refit without adjustment for race. BUN/Creatinine Ratio 21.3 LAB CHEMISTRY METHOD 11/06/2024 11:08 AM [facility] Calcium 9.2 8.5 - 10.5 mg/dL LAB CHEMISTRY METHOD 11/06/2024 11:08 AM [facility] AST (SGOT) 18 10 - 42 unit/L LAB CHEMISTRY METHOD 11/06/2024 11:08 AM [facility] ALT (SGPT) 33 10 - 60 unit/L LAB CHEMISTRY METHOD 11/06/2024 11:08 AM [facility] Alkaline Phosphatase 92 42 - 121 unit/L LAB CHEMISTRY METHOD 11/06/2024 11:08 AM [facility] Total Protein 7.1 6.0 - 8.0 g/dL LAB CHEMISTRY METHOD 11/06/2024 11:08 AM EDT [facility] Albumin 3.6 3.2 - 5.0 g/dL LAB CHEMISTRY METHOD 11/06/2024 11:08 AM EDT [facility] Total Bilirubin 0.3 0.0 - 1.4 mg/dL LAB CHEMISTRY METHOD 11/06/2024 11:08 AM EDT [facility] Blood Venous blood specimen / Unknown Venipuncture / Unknown 11/06/2024 7:00 AM EDT 11/06/2024 10:06 AM EDT Remy Jerez NP LAB BLOOD ORDERABLES Final Resu lt Performing Organization Address City/[facility]/ZIP Co de Phone Number [facility] [address] [place] [address], [place] [phone] * Hemoglobin A1c (11/06/2024 7:00 AM EDT) Hemoglobin A1C 4.9 <6.5 % LAB CHEMISTRY METHOD 11/06/2024 11:26 AM EDT [facility] Mean Bld Glu Estim. 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
--- OUTSIDE RECORDS SUMMARY | 2024-12-24 14:11 | XMS_ITS | Encounter Summary ---
Author Organization [facility] Address [address] [place] [address] Care Team Providers Care Gun Perforator Loader Name Role Phone Remy Jerez NP Primary Care Provider [phone] Encounter Details Date Type Department Care Team (Late st Contact Info) Description 11/06/2024 Lab Requisition [facility] - Main Lab [address] [facility] [address] [place] [address] Remy Jerez NP [facility] [place] [address] Social History Tobacco Use Types Packs/Day Years [...] on filedocumented in this encounter Care Teams Gun Perforator Loader Relationship Specialty Start Date End Date Remy Jerez NP [facility] [place] [address] PCP - General 11/06/24 documented as of this encounter
--- OUTSIDE RECORDS SUMMARY | 2024-12-24 14:11 | XMS_ITS | Clinical Summary ---
Author Organization [address] [facility] Address [address] [place] [address] Phone Care Team Providers Care Retail Cashier Name Role Phone Remy Jerez ROTARY ENGRAVER Primary Care Provider [phone] Encounters Date Type Department Care Team Description 11/06/2024 Lab Requisition [facility] Lab [address] [place] [phone] Remy Jerez NP 11/06/[address] [facility] Lab [address] [place] [phone] Remy Jerez NP Other group home (current) drug therapy 10/20/[address] [facility] Lab [address] [place] [phone] Simi Barkley MD Opioid dependence, uncomplicated (CMS/HCC V24, CMS/[facility] V28) from Last 3 Months Social History [...] LDL Routine 11/06/2024 7:00 AM EDT Other group home (current) drug therapy COMPREHENSIVE METABOLIC PANEL Routine 11/06/2024 7:00 AM EDT Other termination clerk (current) drug therapy HEMOGLOBIN A1C Routine 11/06/2024 7:00 AM EDT Other group home (current) drug therapy CHLAMYDIA TRACHOMATIS AND NEISSERIA [...] LAB CHEMISTRY METHOD 11/06/2024 11:09 AM EDT [facility] Triglycerides 449(H) 0 - 150 mg/dL LAB CHEMISTRY METHOD 11/06/2024 11:09 AM EDT [facility] HDL 39(L) >=40 mg/dL LAB CHEMISTRY METHOD 11/06/2024 11:09 AM T [facility] LDL Calculated 168(H) 0 - 100 mg/dL LAB CHEMISTRY METHOD 11/06/2024 11:09 AM T [facility] Comment: Unable to calculate when triglycerides >400 mg/dL. Estimated LDL Calculated using equation: Total cholesterol - HDL cholesterol - (Triglycerides/5) VLDL Cholesterol Sadi 89.8 mg/dL LAB CHEMISTRY METHOD 11/06/2024 11:09 AM EDT [facility] Comment:Unable to calculate when triglycerides >400 mg/dL. Non HDL Chol. (LDL+VLDL) 258(H) <145 mg/dL LAB CHEMISTRY METHOD 11/06/2024 11:09 AM T [facility] Comment:Unable to calculate when triglycerides >400 mg/dL. Chol/HDL Ratio 7.6(H) 0.0 - 4.4 LAB CHEMISTRY METHOD 11/06/2024 11:09 AM T [facility] Blood Venous blood specimen / Unknown Venipuncture / Unknown 11/06/2024 7:00 AM EDT 11/06/2024 10:06 AM EDT us Remy Jerez NP LAB BLOOD ORDERABLES Final Resu lt [facility] [address] [place] [address], [place] [phone] * Hemoglobin A1c (11/06/2024 7:00 AM EDT) [facility] Hemoglobin A1C 4.9 <6.5 % LAB CHEMISTRY METHOD 11/06/2024 11:[address] [facility] Mean Bld Glu Estim. 94 mg/dL LAB CHEMISTRY METHOD 11/06/2024 11:26 AM T [facility] Blood Venous blood specimen / Unknown Venipuncture / Unknown 11/06/2024 7:00 AM EDT 11/06/2024 10:06 AM EDT Remy Jerez NP LAB BLOOD ORDERABLES Final Resu lt [facility] [address] [place] [address], * (ABNORMAL) Comprehensive metabolic panel (11/06/2024 7:00 AM EDT) [facility] Sodium 140 133 - 145 mmol/L LAB CHEMISTRY METHOD 11/06/2024 11:[address] [facility] Potassium 4.0 3.5 - 5.5 mmol/L LAB CHEMISTRY METHOD 11/06/2024 11:[address] [facility] Chloride 109 96 - 110 mmol/L LAB CHEMISTRY METHOD 11/06/2024 11:[address] [facility] CO2 25 21 - 32 mmol/L LAB CHEMISTRY METHOD 11/06/2024 11:[address] [facility] Anion Gap 6 3 - 11 LAB CHEMISTRY METHOD 11/06/2024 11:[address] [facility] Glucose 105(H) 70 - 100 mg/dL LAB CHEMISTRY METHOD 11/06/2024 11:[address] [facility] BUN 17 5 - 25 mg/dL LAB CHEMISTRY METHOD 11/06/2024 11:[address] [facility] Creatinine 0.80 0.70 - 1.30 mg/dL LAB CHEMISTRY METHOD 11/06/2024 11:[address] [facility] eGFR 109 >=60 mL/min/1. 73m2 LAB CHEMISTRY METHOD 11/06/2024 11:[address] [facility] Comment:Calculation based on the Chronic Kidney Disease Epidemiology Collaboration (CKD-EPI) equation refit without adjustment for race. BUN/Creatinine Ratio 21.3 LAB CHEMISTRY METHOD 11/06/2024 11:[address] [facility] Calcium 9.2 8.5 - 10.5 mg/dL LAB CHEMISTRY METHOD 11/06/2024 11:[address] [facility] AST (SGOT) 18 10 - 42 unit/L LAB CHEMISTRY METHOD 11/06/2024 11:[address] [facility] ALT (SGPT) 33 10 - 60 unit/L LAB CHEMISTRY METHOD 11/06/2024 11:[address] [facility] Alkaline Phosphatase 92 42 - 121 unit/L LAB CHEMISTRY METHOD 11/06/2024 11:[address] [facility] Total Protein 7.1 6.0 - 8.0 g/dL LAB CHEMISTRY METHOD 11/06/2024 11:[address] [facility] Albumin 3.6 3.2 - 5.0 g/dL LAB CHEMISTRY METHOD 11/06/2024 11:[address] [facility] Total Bilirubin 0.3 0.0 - 1.4 mg/dL LAB CHEMISTRY METHOD 11/06/2024 11:[address] [facility] Blood Venous blood specimen / Unknown Venipuncture / Unknown 11/06/2024 7:00 AM EDT 11/06/2024 10:06 AM EDT us Remy Jerez NP LAB BLOOD ORDERABLES Final Resu lt [facility] [address] [place] [address], [place] [phone] * Chlamydia trachomatis and Neisseria gonorrhoeae molecular study (10/20/2024 7:05 AM EDT) [facility] Neisseria gonorrhoeae PCR Negative Negative LAB MOLECULAR DIAGNOSTICS METHOD 10/20/2024 3:32 PM EDT [facility] Chlamydia trachomatis PCR Negative Negative LAB MOLECULAR DIAGNOSTICS METHOD 10/20/2024 3:32 PM EDT [facility] Urine 10/20/2024 7:05 AM EDT 10/20/2024 12:56 PM EDT Simi Barkley MD LAB MICROBIOLOGY - GENE RAL ORDERABLES Final Result Performing Organization Address City/[facility]/ZIP Co de Phone Number [facility] [address] [place] [address], [place] [phone] * Hepatitis C antibody (08/29/2024 7:00 AM EDT) [facility] Hepatitis C Antibody Negative Negative LAB CHEMISTRY METHOD 08/29/2024 7:20 PM EDT [facility] Blood Venous blood specimen / Unknown 08/29/2024 7:00 AM EDT 08/29/2024 2:55 PM EDT Simi Barkley MD LAB BLOOD ORDERABLES Fi nal Result [facility] [address] [place] [address], [place] [phone] * HIV 1,2 antibody, p24 antigen with reflex to differentiation (08/29/2024 7:00 AM EDT) [facility] HIV Combo AB/AG Negative Negative LAB CHEMISTRY METHOD 08/29/2024 7:25 PM EDT [facility] Blood Venous blood specimen / Unknown 08/29/2024 7:00 AM EDT 08/29/2024 2:55 PM EDT Narrative [facility] ([facility] - 08/29/2024 7:25 PM EDT This [...] MD LAB BLOOD ORDERABLES Fi nal Result [facility] ([facility]) [facility] [address] [place] [address], from Last 3 Months or Most Recently Relevant to Health Maintenance Insurance [place]ICA[place] MEDICARE ADVANTAGE Care Teams Retail Cashier Relationship Specialty Start Date End Date Remy Jerez NP [address] [place] [id number] PCP - General 11/06/24
--- OUTSIDE RECORDS SUMMARY | 2024-12-24 14:11 | XMS_ITS | Encounter Summary ---
Author Organization [employer] Address [address] [place] [address] Care Team Providers Care Knock Out Hand Name Role Phone Remy Jerez NP Primary Care Provider Encounter Details Date Type Department Care Team (Late st Contact Info) Description 08/29/2024 Lab Requisition [facility] Lab [address] [facility] [place] [address] Simi Barkley MD [address] [place] [address] Opioid dependence, uncomplicated (CMS/HCC V24, CMS/HCC V28) [...] 08/29/2024 4:01 PM EDT [facility] Comment:Auto resulted. Blood Venous blood specimen / Unknown 08/29/2024 7:00 AM EDT 08/29/2024 2:55 PM EDT us Simi Barkley MD LAB BLOOD ORDERABLES Fi nal Result [facility] [address] [place] [address], [place] [phone] * Red tube (08/29/2024 7:00 AM EDT) Extra Tube Hold for add-ons. 08/29/2024 4:01 PM EDT [facility] Comment:Auto resulted. Blood Venous blood specimen / Unknown 08/29/2024 7:00 AM EDT 08/29/2024 2:55 PM EDT Simi Barkley MD LAB BLOOD ORDERABLES Fi nal Result Performing Organization Address [facility]/ZIP Co de Phone Number [facility] [address] [place] [address], [place] [phone] * Lavender tube (08/29/2024 7:00 AM EDT) Extra Tube Hold for add-ons. 08/29/2024 4:01 PM EDT [facility] Comment:Auto resulted. Blood Venous blood specimen / Unknown 08/29/2024 7:00 AM EDT 08/29/2024 2:55 PM EDT Simi Barkley MD LAB BLOOD ORDERABLES Fi nal Result Performing Organization Address City/[facility]/ZIP Co de Phone Number [facility] [address] [place] [address], [place] [phone] * Hepatitis C antibody (08/29/2024 7:00 AM EDT) Hepatitis C Antibody Negative Negative LAB CHEMISTRY METHOD 08/29/2024 7:20 PM EDT [facility] Blood Venous blood specimen / Unknown 08/29/2024 7:00 AM EDT 08/29/2024 2:55 PM EDT Simi Barkley MD LAB BLOOD ORDERABLES Fi nal Result Performing Organization Address [facility]/ZIP Co de Phone Number [facility] [address] [place] [address], [place] [phone] * Hepatitis A antibody total with reflex IgM (08/29/2024 7:00 AM EDT) Hep A Total Ab Negative Negative LAB CHEMISTRY METHOD 08/29/2024 7:20 PM EDT [facility] Blood Venous blood specimen / Unknown 08/29/2024 7:00 AM EDT 08/29/2024 2:55 PM EDT [facility] - 08/29/2024 7:20 PM EDT Over the counter supplements containing high doses of biotin may interfere with this assay. If interference is suspected, patients shoud be retested after refraining from biotin supplements for 72 hours. Simi Barkley MD LAB BLOOD ORDERABLES Fi nal Result Performing Organization Address [facility] Co de Phone Number [facility] [address] [place] [address], [place] [phone] * HIV 1,2 antibody, p24 antigen with reflex to differentiation (08/29/2024 7:00 AM EDT) HIV Combo AB/AG Negative Negative LAB CHEMISTRY METHOD 08/29/2024 7:25 PM EDT [facility] Blood Venous blood specimen / Unknown 08/29/2024 7:00 AM EDT 08/29/2024 2:55 PM EDT [facility] - 08/29/2024 7:25 PM EDT This [...] ORDERABLES Fi nal Result Performing Organization Address City/[facility]/ZIP Co de Phone Number [facility] [address] [place] [address], [place] [phone] * Hepatitis B core antibody, total (08/29/2024 7:00 AM EDT) Hep B Core Total Ab Negative Negative LAB CHEMISTRY METHOD 08/29/2024 7:25 PM EDT [facility] Blood Venous blood specimen / Unknown 08/29/2024 7:00 AM EDT 08/29/2024 2:55 PM EDT Simi Barkley MD LAB BLOOD ORDERABLES Fi nal Result Performing Organization Address [facility] de Phone Number [facility] [address] [place] [address], [place] [phone] * Hepatitis B surface antibody (08/29/2024 7:00 AM EDT) Hepatitis B Surface Ab Negative Negative LAB CHEMISTRY METHOD 08/29/2024 6:46 PM EDT [facility] Hepatitis B Surface Ab Quantitative <3.1 mIU/mL LAB CHEMISTRY METHOD 08/29/2024 6:46 PM EDT [facility] Blood Venous blood specimen / Unknown 08/29/2024 7:00 AM EDT 08/29/2024 2:55 PM EDT Narrative [facility] - 08/29/2024 6:46 PM EDT >=10 mIU/mL is considered to be consistent with immunity. Simi Barkley MD LAB BLOOD ORDERABLES Fi nal Result Performing Organization Address City/[facility]/ZIP Co de Phone Number [facility] [address] [place] [address], [place] [phone] * Hepatitis B surface antigen with reflex to confirmation (08/29/2024 7:00 AM EDT) [facility] Hepatitis B Surface Ag Negative Negative LAB CHEMISTRY METHOD 08/29/2024 6:57 PM EDT [facility] Blood Venous blood specimen / Unknown 08/29/2024 7:00 AM EDT 08/29/2024 2:55 PM EDT Narrative [facility] - 08/29/2024 6:57 PM EDT Over the counter supplements containing high doses of biotin may interfere with this assay. If interference is suspected, patients shoud be retested after refraining from biotin supplements for 72 hours. Simi Barkley MD LAB BLOOD ORDERABLES Fi nal Result Performing Organization Address [facility]/ZIP Co de Phone Number [facility] [address] [place] [address], [place] [phone] * Treponema pallidum antibody with reflex to RPR and particle agglutination (08/29/2024 7:00 AM EDT) [facility] T. Pallidum Antibodies Negative Negative LAB CHEMISTRY METHOD 08/29/2024 6:56 PM EDT [facility] Blood Venous blood specimen / Unknown 08/29/2024 7:00 AM EDT 08/29/2024 2:55 PM EDT Simi Barkley MD LAB BLOOD ORDERABLES Fi nal Result Performing Organization Address City/[facility]/ZIP Co de Phone Number [facility] [address] [place] [address], [place] [phone] * Comprehensive metabolic panel (08/29/2024 7:00 AM EDT) [facility] Sodium 140 133 - 145 mmol/L LAB CHEMISTRY METHOD 08/29/2024 3:58 PM [facility] Potassium 4.2 3.5 - 5.5 mmol/L LAB CHEMISTRY METHOD 08/29/2024 3:58 PM [facility] Chloride 106 96 - 110 mmol/L LAB CHEMISTRY METHOD 08/29/2024 3:58 PM [facility] CO2 24 21 - 32 mmol/L LAB CHEMISTRY METHOD 08/29/2024 3:58 PM [facility] Anion Gap 10 3 - 11 LAB CHEMISTRY METHOD 08/29/2024 3:58 PM [facility] Glucose 98 70 - 100 mg/dL LAB CHEMISTRY METHOD 08/29/2024 3:58 PM [facility] BUN 18 5 - 25 mg/dL LAB CHEMISTRY METHOD 08/29/2024 3:58 PM [facility] Creatinine 0.86 0.70 - 1.30 mg/dL LAB CHEMISTRY METHOD 08/29/2024 3:58 PM [facility] eGFR 107 >=60 mL/min/1. 73m2 LAB CHEMISTRY METHOD 08/29/2024 3:58 PM [facility] Comment:Calculation based on the Chronic Kidney Disease Epidemiology Collaboration (CKD-EPI) equation refit without adjustment for race. BUN/Creatinine Ratio 20.9 LAB CHEMISTRY METHOD 08/29/2024 3:58 PM [facility] Calcium 8.6 8.5 - 10.5 mg/dL LAB CHEMISTRY METHOD 08/29/2024 3:58 PM [facility] AST (SGOT) 27 10 - 42 unit/L LAB CHEMISTRY METHOD 08/29/2024 3:58 PM [facility] ALT (SGPT) 26 10 - 60 unit/L LAB CHEMISTRY METHOD 08/29/2024 3:58 PM [facility] Alkaline Phosphatase 88 42 - 121 unit/L LAB CHEMISTRY METHOD 08/29/2024 3:58 PM [facility] Total Protein 7.8 6.0 - 8.0 g/dL LAB CHEMISTRY METHOD 08/29/2024 3:58 PM EDT [facility] Albumin 3.9 3.2 - 5.0 g/dL LAB CHEMISTRY METHOD 08/29/2024 3:58 PM EDT [facility] Total Bilirubin 0.3 0.0 - 1.4 mg/dL LAB CHEMISTRY METHOD 08/29/2024 3:58 PM EDT [facility] Blood Venous blood specimen / Unknown 08/29/2024 7:00 AM EDT 08/29/2024 2:55 PM EDT us Simi Barkley MD LAB BLOOD ORDERABLES Fi nal Result [facility] [address] [place] [address], documented in this encounter Visit Diagnoses Diagnosis Opioid dependence, uncomplicated (CMS/HCC V24, CMS/HCC V28) documented in this encounter Care Teams Knock Out Hand Relationship Specialty Start Date End Date Remy Jerez NP [address] [place] [id number] PCP - General 11/06/24 documented as of this encounter
--- OUTSIDE RECORDS SUMMARY | 2024-12-24 14:11 | XMS_ITS | Encounter Summary ---
Author Organization [facility] Address [address] [place] [address] Care Team Providers Care Time Analysis Clerk Name Role Phone Remy Jerez NP Primary Care Provider [phone] Encounter Details Date Type Department Care Team (Late st Contact Info) Description 10/20/2024 Lab Requisition [facility] Lab [address] [facility] [place] [address] Simi Barkley MD [address] [place] [address] Opioid dependence, uncomplicated ([facility] V24, [facility] V28) Social History Tobacco Use Types [...] 10/20/2024 7:05 AM EDT Opioid dependence, uncomplicated ([facility] V24, [facility] V28) documented in this encounter Results [...] ORDERABLES Final Result [facility] [address] [place] [address], documented in this encounter Visit Diagnoses Diagnosis Opioid dependence, uncomplicated (CMS/HCC V24, CMS/HCC V28) documented in this encounter Care Teams Time Analysis Clerk Relationship Specialty Start Date End Date Remy Jerez NP [facility] [place] [address] PCP - General 11/06/24 documented as of this encounter
== END 2024-12-17 10:50 | DRG 881 ==
LOC: HO.ED 13:10 → HO.PADLT16 12-08 13:05
PROVIDERS: Nurse Practitioner Family; Physician Assistant; Admitting Provider Nurse Practitioner Psychiatric/Mental Health; Emergency Provider Emergency Medicine; PCP Internal Medicine; Visit Provider Nurse Practitioner Psychiatric/Mental Health
DX: F32.A Depression, unspecified (principal); F11.20 Opioid dependence, uncomplicated; R45.851 Suicidal ideations; F17.210 Nicotine dependence, cigarettes, uncomplicated; Z71.6 Tobacco abuse counseling; G62.9 Polyneuropathy, unspecified; R45.850 Homicidal ideations; E78.5 Hyperlipidemia, unspecified; I10 Essential (primary) hypertension; N40.1 Benign prostatic hyperplasia with lower urinary tract symptoms; R39.12 Poor urinary stream; R35.1 Nocturia; Z79.899 Other long term (current) drug therapy
CPT/HCPCS: 36415; 80048; 80053; 80061; 80307; 81001; 83036; 84439; 84443; 85025; 93005; 99285; S9485

== ENCOUNTER → 2024-12-08 08:15 | Outpatient (BNV) | payer MEDICARE, SELFPAY | PROVIDERS: Emergency Provider Emergency Medicine; PCP Internal Medicine; Visit Provider Internal Medicine Cardiovascular Disease | DX: R00.1 Bradycardia, unspecified (principal) | CPT/HCPCS: 93010 ==

== ENCOUNTER → 2024-12-08 11:59 | Outpatient (BNV) | payer MEDICARE, SELFPAY | PROVIDERS: Admitting Provider Nurse Practitioner Psychiatric/Mental Health; Emergency Provider Emergency Medicine; PCP Internal Medicine; Visit Provider Nurse Practitioner Psychiatric/Mental Health | DX: F32.2 Major depressive disorder, single episode, severe without psychotic features (principal); R45.851 Suicidal ideations; R45.850 Homicidal ideations; I10 Essential (primary) hypertension; E78.5 Hyperlipidemia, unspecified | CPT/HCPCS: 90792; 99232 ==

== ENCOUNTER → 2024-12-08 11:59 | Outpatient (BNV) | payer MEDICARE, SELFPAY | PROVIDERS: Admitting Provider Nurse Practitioner Psychiatric/Mental Health; Emergency Provider Emergency Medicine; PCP Internal Medicine; Visit Provider Nurse Practitioner Family | DX: E78.5 Hyperlipidemia, unspecified (principal); I10 Essential (primary) hypertension; N40.0 Benign prostatic hyperplasia without lower urinary tract symptoms | CPT/HCPCS: 99222 ==